=== PATIENT | female | born 1995 | race Two or more races ===

== ENCOUNTER 2016-09-28 11:59 | Emergency (ER) | payer OTHER ==
[~2016-09-28] VITALS: Ht 165.1 cm; Wt 112.5 kg
[~2016-09-28 11:59] MED LIST: FERR325T3 PO; IBUP80TA PO; PERCOCET PO; VALT500T PO; VITAPRTA PO
[2016-09-28 13:16] LABS: BASO % 0.4 % (0.0-1.0); EOS # 0.1 K/mm3 (0.0-0.50); EOS % 1.5 % (0.0-3.0); LARGE UNSTAINED CELL # 0.2 K/mm3 (0.0-0.4); LARGE UNSTAINED CELL % 1.9 % (0.0-4.0); LYMPH # 2.4 K/mm3 (1.5-6.5); LYMPH % 30.8 % (24.0-44.0); MEAN CORPUSCULAR HEMOGLOBIN 29.4 pg (27.0-33.0); MEAN CORPUSCULAR HGB CONC 32.7 g/dl (32.0-36.5); MONO # 0.6 K/mm3 (0.0-0.8); MONO % 7.4 % (0.0-5.0); NEUTROPHILS # 4.5 K/mm3 (1.8-7.7); NEUTROPHILS % 58.1 % (36.0-66.0); PLATELET COUNT, AUTOMATED 223 k/mm3 (150-450); RED CELL DISTRIBUTION WIDTH 12.5 % (11.5-14.5); WHITE BLOOD COUNT 7.8 K/mm3 (4.0-10.0)
[2016-09-28 13:23] LABS: ALBUMIN 3.6 GM/DL (3.2-5.2); ALBUMIN/GLOBULIN RATIO 0.97 (1.00-1.93); ALKALINE PHOSPHATASE 96 U/L (45-117); ALT/SGPT 11 U/L (12-78); ANION GAP 5 MEQ/L (8-16); AST/SGOT 10 U/L (15-37); BILIRUBIN,TOTAL 0.2 MG/DL (0.2-1.0); BLOOD UREA NITROGEN 14 MG/DL (7-18); CALCIUM LEVEL 9.1 MG/DL (8.5-10.1); CARBON DIOXIDE LEVEL 29 MEQ/L (21-32); CHLORIDE LEVEL 107 MEQ/L (98-107); CREATININE FOR GFR 0.69 MG/DL (0.55-1.02); GLOMERULAR FILTRATION RATE > 60.0 (>60); GLUCOSE, FASTING 87 MG/DL (70-105); POTASSIUM SERUM 4.7 MEQ/L (3.5-5.1); SODIUM LEVEL 141 MEQ/L (136-145); TOTAL PROTEIN 7.3 GM/DL (6.4-8.2)
[2016-09-28 13:24] LABS: CONTROL LINE HCG INT CTR LINE PRESENT
--- NOTE | 2016-09-28 14:13 | REP ---
RENAL ULTRASOUND: Real-time sonographic evaluation of the kidneys performed and demonstrates both kidneys to be normal in size and echotexture, right kidney measuring 11.1 x 5.5 x 4.7 cm and left kidney 10.6 x 5.5 x 5.6 cm. There is no hydronephrosis bilaterally. No intrarenal stones are seen. Small cystic area in the upper pole of the right kidney may represent a small cyst or focal caliectasis, measuring 9 x 6 x 7 mm. Urinary bladder is empty and is not evaluated. IMPRESSION: No evidence of hydronephrosis or intrarenal calculi. Signed by Tejinder Miller MD 09/28/2016 07:49 P
[2016-09-28] MEDS ORDERED: NAPR500T2 PO (15:11)
[2016-09-28 15:24] VITALS: BP 130/66
[2016-09-28] MEDS ORDERED: IBUP600T26 PO (15:35)
[2016-09-28] MEDS ORDERED: IBUPROFEN 600 MG TAB PO ONE (15:45)
--- NOTE | 2016-09-29 06:51 | REP ---
CHEST, TWO VIEWS: There is no evidence of acute infiltrate. No pleural effusion is seen. The heart is normal in size. The mediastinal silhouette is unremarkable. The visualized osseous structures are intact. IMPRESSION: No acute pulmonary disease. Signed by Tejinder Miller MD 09/29/2016 07:49 P
== END 2016-09-28 15:45 | disposition home or self-care (01) ==
LOC: M ED 12:54
DX: R10.9 Unspecified abdominal pain (principal); M54.9 Dorsalgia, unspecified; J45.909 Unspecified asthma, uncomplicated; F41.9 Anxiety disorder, unspecified; F32.9 Major depressive disorder, single episode, unspecified; F17.200 Nicotine dependence, unspecified, uncomplicated

== ENCOUNTER 2017-03-04 15:11 | Emergency (ER) | payer OTHER ==
[~2017-03-04] VITALS: Ht 165.1 cm; Wt 118.1 kg
[~2017-03-04 15:11] MED LIST changes: -NAPR500T PO; -TYLE325C PO
[2017-03-04] MEDS ORDERED: TYLE325C PO (15:24)
[2017-03-04] MEDS ORDERED: KETOROLAC 30 MG/ML VIAL (J1885) IV ONE (16:30)
--- NOTE | 2017-03-04 16:48 | REP ---
Chest two views HISTORY: Chest pain Comparison: 09/28/2016 The lungs are clear. The heart is normal in size. The pulmonary vasculature is normal in appearance. The bony structure is intact. IMPRESSION: No acute disease. Signed by Emerson Cobian MD 03/04/2017 04:40 P
[2017-03-04] MEDS ORDERED: NAPR500T PO (17:52)
[2017-03-04 17:58] VITALS: BP 106/58
--- NOTE | 2017-03-05 08:24 | ECGEPIP ---
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 Order Number: [id number] Reading MD: Yaquelin Ruiz Measurements Intervals [place] Rate: 57 P: 51 [place]: 184 QRS: 57 QRSD: 92 T: 52 QT: 454 QTc: 443 Interpretive Statements SINUS BRADYCARDIA NSTTW ABNORMALITY, NEW 12/15/14 Electronically Signed On 03-05-2017 8:24:36 EDT by Yaquelin Ruiz
== END 2017-03-04 18:00 | disposition home or self-care (01) ==
LOC: M ED 15:11
DX: R07.89 Other chest pain (principal); R09.1 Pleurisy; J45.909 Unspecified asthma, uncomplicated; F41.9 Anxiety disorder, unspecified; F33.9 Major depressive disorder, recurrent, unspecified
CPT/HCPCS: 36415; 71020; 81025; 82550; 82553; 85379; 93000; 96374; 99284; J1885

== ENCOUNTER → 2017-03-04 | Outpatient (CLI) | payer OTHER ==
[~2017-03-04] MED LIST changes: +IBUP-1022 PO; +NAPR500T PO; +NAPR500T3 PO; +TYLE325C PO
[2017-03-04 15:12] LABS: BASO % 0.3 % (0.0-1.0); EOS # 0.1 10^3/uL (0.0-0.50); EOS % 0.8 % (0.0-3.0); IMMATURE GRANULOCYTE % 0.2 % (0-0); LYMPH # 2.6 10^3/uL (1.5-6.5); LYMPH % 29.3 % (24.0-44.0); MEAN CORPUSCULAR HEMOGLOBIN 29.1 pg (27.0-33.0); MEAN CORPUSCULAR HGB CONC 32.6 g/dl (32.0-36.5); MEAN CORPUSCULAR VOLUME 89.2 fl (80.0-96.0); MONO # 0.7 10^3/uL (0.0-0.8); MONO % 8.1 % (0.0-5.0); NEUTROPHILS # 5.4 10^3/uL (1.8-7.7); NEUTROPHILS % 61.3 % (36.0-66.0); PLATELET COUNT, AUTOMATED 262 10^3/uL (150-450); RED CELL DISTRIBUTION WIDTH 12.8 % (11.5-14.5); WHITE BLOOD COUNT 8.8 10^3/uL (4.0-10.0)
[2017-03-04 15:50] LABS: ALBUMIN 3.7 GM/DL (3.2-5.2); ALBUMIN/GLOBULIN RATIO 1.03 (1.00-1.93); ALKALINE PHOSPHATASE 96 U/L (45-117); ALT/SGPT 21 U/L (12-78); ANION GAP 6 MEQ/L (8-16); AST/SGOT 15 U/L (15-37); BILIRUBIN,TOTAL 0.2 MG/DL (0.2-1.0); BLOOD UREA NITROGEN 13 MG/DL (7-18); CALCIUM LEVEL 8.8 MG/DL (8.5-10.1); CARBON DIOXIDE LEVEL 27 MEQ/L (21-32); CHLORIDE LEVEL 106 MEQ/L (98-107); CHOLESTEROL LEVEL 158 MG/DL (<200); CREATININE FOR GFR 0.72 MG/DL (0.55-1.02); GLOMERULAR FILTRATION RATE > 60.0 (>60); GLUCOSE, FASTING 94 MG/DL (70-105); POTASSIUM SERUM 4.4 MEQ/L (3.5-5.1); SODIUM LEVEL 139 MEQ/L (136-145); TOTAL PROTEIN 7.3 GM/DL (6.4-8.2); TRIGLYCERIDES LEVEL 110 MG/DL (<150)
== END ==
LOC: M LAB 14:46
PROVIDERS: ATTEND Family Medicine Addiction Medicine
DX: Z00.01 Encounter for general adult medical examination with abnormal findings (principal)

== ENCOUNTER 2017-04-06 20:41 | Emergency (ER) | payer OTHER ==
[~2017-04-06] VITALS: Ht 165.1 cm; Wt 117.3 kg
[~2017-04-06 20:41] MED LIST changes: +NAPR500T PO; +TYLE325C PO
[2017-04-06] MEDS ORDERED: IBUP-1114 PO (20:48)
[2017-04-06] MEDS ORDERED: NS 1,000 ML IV SCH (21:39)
[2017-04-06] MEDS ORDERED: ONDANSETRON 4MG/2ML VIAL (J2405) IV ONE (21:45)
[2017-04-06] MEDS: MORPHINE 4 MG/ML 1ML SYRINGE IV PRN (22:40)
[2017-04-06 22:46] LABS: BASO % 0.2 % (0.0-1.0); EOS # 0.1 10^3/uL (0.0-0.50); IMMATURE GRANULOCYTE % 0.3 % (0-0); LYMPH # 3.4 10^3/uL (1.5-6.5); LYMPH % 34.8 % (24.0-44.0); MEAN CORPUSCULAR HEMOGLOBIN 29.6 pg (27.0-33.0); MEAN CORPUSCULAR HGB CONC 33.6 g/dl (32.0-36.5); MEAN CORPUSCULAR VOLUME 88.1 fl (80.0-96.0); MONO # 0.8 10^3/uL (0.0-0.8); MONO % 8.3 % (0.0-5.0); NEUTROPHILS # 5.3 10^3/uL (1.8-7.7); NEUTROPHILS % 55.4 % (36.0-66.0); PLATELET COUNT, AUTOMATED 278 10^3/uL (150-450); RED CELL DISTRIBUTION WIDTH 12.7 % (11.5-14.5); WHITE BLOOD COUNT 9.6 10^3/uL (4.0-10.0)
[2017-04-06 22:57] LABS: INR 0.94
[2017-04-06 23:04] LABS: CONTROL LINE HCG INT CTR LINE PRESENT
[2017-04-06 23:13] LABS: ALBUMIN 3.2 GM/DL (3.2-5.2); ALBUMIN/GLOBULIN RATIO 0.82 (1.00-1.93); ALKALINE PHOSPHATASE 88 U/L (45-117); ALT/SGPT 14 U/L (12-78); ANION GAP 6 MEQ/L (8-16); AST/SGOT 11 U/L (7-37); BILIRUBIN,DIRECT < 0.1 MG/DL (0.0-0.2); BILIRUBIN,TOTAL 0.2 MG/DL (0.2-1.0); BLOOD UREA NITROGEN 19 MG/DL (7-18); CALCIUM LEVEL 8.2 MG/DL (8.5-10.1); CARBON DIOXIDE LEVEL 26 MEQ/L (21-32); CHLORIDE LEVEL 108 MEQ/L (98-107); CREATININE FOR GFR 0.63 MG/DL (0.55-1.02); GLOMERULAR FILTRATION RATE > 60.0 (>60); GLUCOSE, FASTING 93 MG/DL (70-105); POTASSIUM SERUM 3.6 MEQ/L (3.5-5.1); SODIUM LEVEL 140 MEQ/L (136-145); TOTAL PROTEIN 7.1 GM/DL (6.4-8.2)
[2017-04-06] MEDS ORDERED: ISOVUE-370 76% 100ML VIAL (Q9967) As Ordered ONE (23:40)
[2017-04-07] MEDS: MORPHINE 4 MG/ML 1ML SYRINGE IV PRN (01:00)
--- NOTE | 2017-04-07 01:10 | REPUSA ---
CLINICAL HISTORY: Dyspnea, exclude PE. TECHNIQUE: Multiple incremental axial, coronal and oblique images are obtained from the thoracic inle t to the upper abdomen. Intravenous contrast material was administered as per pulmonary embolism prot ocol. COMMENTS: Small bilateral pleural effusions. Passive atelectatic airspace disease in the lower lobes. There is excellent opacification of pulmonary arterial system without evidence for pulmonary embolism . Aorta is of normal caliber without evidence for dissection or aneurysm. There is no evidence of pleural or parenchymal mass. There is no evidence of hilar or mediastinal lym phadenopathy. The heart and great vessels are within normal limits. Images of the upper abdomen demonstrate no evidence of adrenal mass. The bony structures are free of lytic or blastic lesions. Multilevel degenerative changes are seen in volving the visualized thoracolumbar spine. Scattered calcifications are seen involving the aorta and major branches compatible with atherosclero sis. IMPRESSION: No evidence for pulmonary embolism. Small pleural effusions. Passive atelectatic airspace disease in the lower lobes. Thank you for your kind referral of this patient.
--- NOTE | 2017-04-07 01:20 | REPUSA ---
CLINICAL HISTORY: Abdominal pain. TECHNIQUE: Multiple axial and coronal CT images were obtained through the abdomen and pelvis after ad ministration of intravenous contrast material. COMMENTS: Minimal right pleural effusion. Small left pleural effusion. Passive atelectatic airspace disease in the lower lobes. Mild thickening of the proximal small bowel loops in the left upper quadrant. The liver is of uniform attenuation without mass or defect. There is no intra or extrahepatic biliary ductal dilatation. The spleen is normal. The gallbladder is within normal limits. The pancreas is of normal contour and attenuation characteristics. There is no evidence of adrenal mass. Both kidneys demonstrate prompt and equal nephrograms. The kidneys are normal in size, shape and conf iguration. There is no evidence of renal or ureteral mass. No renal or ureteral calculi are identifie d. There is no hydroureter or hydronephrosis. No evidence for appendicitis. No evidence for small or large bowel obstruction. There is no evidence of abdominal ascites or lymphadenopathy. There is no evidence of intrinsic or extrinsic bladder mass. There is no pelvic ascites or lymphadeno frankie. Images of the lung bases show no evidence of pleural or parenchymal mass. The bony structures are reyes e of lytic or blastic lesions. IMPRESSION: Minimal right pleural effusion. Small left pleural effusion. Passive atelectatic airspace disease in the lower lobes. Mild thickening of the proximal small bowel loops in the left upper quadrant. Underdistention versus mild enteritis. Thank you for your kind referral of this patient.
[2017-04-07 02:59] VITALS: BP 113/58
--- NOTE | 2017-04-07 09:32 | ED PDOC ---
Post-Departure Follow-Up ct abd/p faxed to [facility] for follow up Chele Locke MD Apr 07, 2017 09:32
--- NOTE | 2017-04-08 05:34 | ECGEPIP ---
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
== END 2017-04-07 03:19 | disposition home or self-care (01) ==
LOC: M ED 20:41
DX: R10.9 Unspecified abdominal pain (principal); Z72.0 Tobacco use
CPT/HCPCS: 71275; 74177; 80048; 80076; 82550; 82553; 83690; 84703; 85025; 85610; 85730; 93000; 93041; 94760; 96374; 96375; 96376; 99284; J2405; Q9967

== ENCOUNTER → 2017-05-14 | Outpatient (CLI) | payer OTHER ==
[2017-05-14 16:41] LABS: ERYTHROCYTE SEDIMENTATION RATE 19 mm/hr (0-20)
[2017-05-22 00:06] LABS: ANTI-SACCHAROMYCES CEREV. IgA 37.6 Units (0.0-24.9); ANTI-SACCHAROMYCES CEREV. IgG <20.0 Units (0.0-24.9)
== END ==
LOC: M LAB 15:27
DX: R93.3 Abnormal findings on diagnostic imaging of other parts of digestive tract (principal)
CPT/HCPCS: 82784

== ENCOUNTER 2017-06-03 10:30 | Emergency (ER) | payer OTHER ==
[2017-06-03] MEDS: METOCLOPRAMIDE 10 MG TAB PO (11:29)
[2017-06-03 11:53] LABS: BASO % 0.2 % (0.0-1.0); EOS % 0.3 % (0.0-3.0); HEMATOCRIT 40.7 % (36.0-47.0); HEMOGLOBIN 13.7 g/dl (12.0-16.0); IMMATURE GRANULOCYTE % 0.2 % (0-0); LYMPH # 1.9 10^3/uL (1.5-6.5); LYMPH % 18.8 % (24.0-44.0); MEAN CORPUSCULAR HEMOGLOBIN 28.8 pg (27.0-33.0); MEAN CORPUSCULAR HGB CONC 33.7 g/dl (32.0-36.5); MEAN CORPUSCULAR VOLUME 85.5 fl (80.0-96.0); MONO # 0.7 10^3/uL (0.0-0.8); MONO % 7.2 % (0.0-5.0); NEUTROPHILS # 7.6 10^3/uL (1.8-7.7); NEUTROPHILS % 73.3 % (36.0-66.0); PLATELET COUNT, AUTOMATED 262 10^3/uL (150-450); RED BLOOD COUNT 4.76 10^6/uL (4.00-5.40); RED CELL DISTRIBUTION WIDTH 12.2 % (11.5-14.5); WHITE BLOOD COUNT 10.3 10^3/uL (4.0-10.0)
[2017-06-03 12:29] LABS: ANION GAP 9 MEQ/L (8-16); BLOOD UREA NITROGEN 7 MG/DL (7-18); CALCIUM LEVEL 8.8 MG/DL (8.5-10.1); CARBON DIOXIDE LEVEL 24 MEQ/L (21-32); CHLORIDE LEVEL 106 MEQ/L (98-107); CREATININE FOR GFR 0.55 MG/DL (0.55-1.02); GLOMERULAR FILTRATION RATE > 60.0 (>60); GLUCOSE, FASTING 89 MG/DL (70-105); HCG, SERUM QUANTITATIVE 34677 MIU/ML; POTASSIUM SERUM 4.6 MEQ/L (3.5-5.1); SODIUM LEVEL 139 MEQ/L (136-145)
== END 2017-06-03 13:07 | disposition home or self-care (01) ==
LOC: M ED 10:30
DX: O21.9 Vomiting of pregnancy, unspecified (principal); O99.89 Other specified diseases and conditions complicating pregnancy, childbirth and the puerperium; R19.7 Diarrhea, unspecified; O99.511 Diseases of the respiratory system complicating pregnancy, first trimester; J45.909 Unspecified asthma, uncomplicated; Z3A.01 Less than 8 weeks gestation of pregnancy
CPT/HCPCS: 84702

== ENCOUNTER → 2017-07-08 | Outpatient (CLI) | payer OTHER ==
[2017-07-08 17:31] LABS: BASO % 0.2 % (0.0-1.0); EOS % 0.2 % (0.0-3.0); HEMATOCRIT 35.7 % (36.0-47.0); HEMOGLOBIN 12.2 g/dl (12.0-16.0); IMMATURE GRANULOCYTE % 0.4 % (0-3.0); LYMPH # 2.3 10^3/uL (1.5-6.5); LYMPH % 23.3 % (24.0-44.0); MEAN CORPUSCULAR HEMOGLOBIN 29.5 pg (27.0-33.0); MEAN CORPUSCULAR HGB CONC 34.2 g/dl (32.0-36.5); MEAN CORPUSCULAR VOLUME 86.2 fl (80.0-96.0); MONO # 0.5 10^3/uL (0.0-0.8); MONO % 5.5 % (0.0-5.0); NEUTROPHILS # 6.8 10^3/uL (1.8-7.7); NEUTROPHILS % 70.4 % (36.0-66.0); PLATELET COUNT, AUTOMATED 230 10^3/uL (150-450); RED BLOOD COUNT 4.14 10^6/uL (4.00-5.40); RED CELL DISTRIBUTION WIDTH 12.5 % (11.5-14.5); WHITE BLOOD COUNT 9.7 10^3/uL (4.0-10.0)
[2017-07-09 00:26] LABS: CHLAMYDIA DNA AMPLIFICATION NEGATIVE (NEGATIVE); GC DNA AMPLIFICATION NEGATIVE (NEGATIVE)
[2017-07-09 10:35] LABS: RUBELLA IgG QUALITATIVE IMMUNE (IMMUNE)
[2017-07-09 10:56] LABS: HBsAg Prenatal NEGATIVE (NEGATIVE)
[2017-07-09 11:04] LABS: HIV 1&2 SCREEN CENTAUR NEGATIVE (NEGATIVE)
== END ==
LOC: M SMT 15:39
DX: Z34.81 Encounter for supervision of other normal pregnancy, first trimester (principal); Z3A.09 9 weeks gestation of pregnancy
CPT/HCPCS: 86762

== ENCOUNTER 2017-07-24 12:09 | Emergency (ER) | payer OTHER ==
[2017-07-24] MEDS: NS 1,000 ML IV (12:50)
[2017-07-24] MEDS: ONDANSETRON 4MG/2ML VIAL (J2405) IV (12:50)
[2017-07-24 13:09] LABS: AMORPHOUS SEDIMENT RFX SMALL (NEGATIVE); KETONE, URINE AUTO RFX TRACE mg/dL (NEGATIVE); LEUKOCYTE ESTERASE UR AUTO RFX NEGATIVE (NEGATIVE); MUCUS, URINE RFX SMALL (NEGATIVE); NITRITE, URINE AUTO RFX NEGATIVE (NEGATIVE); RBC, URINE AUTO RFX 2 /HPF (0-3); SPECIFIC GRAVITY UR AUTO RFX 1.029 (1.002-1.035); SQUAM EPITHELIAL CELL UR AURFX 3 /HPF (0-6); WBC, URINE AUTO RFX 3 /HPF (0-3)
[2017-07-24 13:12] LABS: BASO % 0.3 % (0.0-1.0); EOS % 0.4 % (0.0-3.0); HEMATOCRIT 38.9 % (36.0-47.0); IMMATURE GRANULOCYTE % 0.5 % (0-3.0); LYMPH # 1.3 10^3/uL (1.5-6.5); LYMPH % 16.7 % (24.0-44.0); MEAN CORPUSCULAR HEMOGLOBIN 28.7 pg (27.0-33.0); MEAN CORPUSCULAR HGB CONC 33.4 g/dl (32.0-36.5); MEAN CORPUSCULAR VOLUME 85.9 fl (80.0-96.0); MONO # 0.5 10^3/uL (0.0-0.8); MONO % 6.2 % (0.0-5.0); NEUTROPHILS % 75.9 % (36.0-66.0); PLATELET COUNT, AUTOMATED 230 10^3/uL (150-450); RED BLOOD COUNT 4.53 10^6/uL (4.00-5.40); RED CELL DISTRIBUTION WIDTH 12.8 % (11.5-14.5); WHITE BLOOD COUNT 7.9 10^3/uL (4.0-10.0)
[2017-07-24 13:27] LABS: ALBUMIN/GLOBULIN RATIO 0.68 (1.00-1.93); ALKALINE PHOSPHATASE 76 U/L (45-117); ALT/SGPT 10 U/L (12-78); ANION GAP 8 MEQ/L (8-16); AST/SGOT 11 U/L (7-37); BILIRUBIN,TOTAL 0.2 MG/DL (0.2-1.0); BLOOD UREA NITROGEN 7 MG/DL (7-18); CALCIUM LEVEL 8.5 MG/DL (8.5-10.1); CARBON DIOXIDE LEVEL 24 MEQ/L (21-32); CHLORIDE LEVEL 104 MEQ/L (98-107); CREATININE FOR GFR 0.56 MG/DL (0.55-1.30); GLOMERULAR FILTRATION RATE > 60.0 (>60); GLUCOSE, FASTING 78 MG/DL (70-100); LIPASE 105 U/L (73-393); POTASSIUM SERUM 4.1 MEQ/L (3.5-5.1); SODIUM LEVEL 136 MEQ/L (136-145); TOTAL PROTEIN 7.4 GM/DL (6.4-8.2)
[2017-07-24] MEDS: PROMETHAZINE 25 MG TAB PO (14:21)
== END 2017-07-24 15:52 | disposition home or self-care (01) ==
LOC: M ED 12:09
DX: O21.0 Mild hyperemesis gravidarum (principal); O99.89 Other specified diseases and conditions complicating pregnancy, childbirth and the puerperium; R19.7 Diarrhea, unspecified; O99.511 Diseases of the respiratory system complicating pregnancy, first trimester; J45.909 Unspecified asthma, uncomplicated; Z3A.14 14 weeks gestation of pregnancy
CPT/HCPCS: J2405

== ENCOUNTER → 2017-08-22 | Outpatient (CLI) | payer OTHER | LOC: M RAD 09:30 | DX: Z36.9 Encounter for antenatal screening, unspecified (principal); Z3A.19 19 weeks gestation of pregnancy ==

== ENCOUNTER → 2017-09-17 | Outpatient (CLI) | payer OTHER | LOC: M SMT 14:35 | DX: O34.211 Maternal care for low transverse scar from previous cesarean delivery (principal); Z3A.21 21 weeks gestation of pregnancy | CPT/HCPCS: 76816 ==

== ENCOUNTER → 2017-10-30 | Outpatient (CLI) | payer OTHER ==
[2017-10-30 11:12] LABS: HEMATOCRIT 34.6 % (36.0-47.0); HEMOGLOBIN 11.6 g/dl (12.0-15.5); MEAN CORPUSCULAR HEMOGLOBIN 29.4 pg (27.0-33.0); MEAN CORPUSCULAR HGB CONC 33.5 g/dl (32.0-36.5); MEAN CORPUSCULAR VOLUME 87.6 fl (80.0-96.0); PLATELET COUNT, AUTOMATED 211 10^3/uL (150-450); RED BLOOD COUNT 3.95 10^6/uL (4.00-5.40); RED CELL DISTRIBUTION WIDTH 12.9 % (11.5-14.5); WHITE BLOOD COUNT 10.8 10^3/uL (4.0-10.0)
[2017-10-30 11:30] LABS: GLUCOSE CHALLENGE TEST 1 HOUR 119 MG/DL (LESS THAN 140)
== END ==
LOC: M LAB 09:36
DX: Z34.82 Encounter for supervision of other normal pregnancy, second trimester (principal)
CPT/HCPCS: 82950

== ENCOUNTER 2017-11-30 17:13 | Outpatient (CLI) | payer OTHER | END 2017-11-30 18:25 | disposition home or self-care (01) | LOC: M LDO 17:13 | DX: O47.03 False labor before 37 completed weeks of gestation, third trimester (principal); Z3A.32 32 weeks gestation of pregnancy | CPT/HCPCS: 76815 ==

== ENCOUNTER → 2017-12-25 | Outpatient (REF) | payer OTHER | LOC: M LAB REF 17:24 | DX: Z34.83 Encounter for supervision of other normal pregnancy, third trimester (principal); Z3A.00 Weeks of gestation of pregnancy not specified | CPT/HCPCS: 87081 ==

== ENCOUNTER 2018-01-12 10:23 | Outpatient (CLI) | payer OTHER | END 2018-01-12 12:47 | disposition home or self-care (01) | LOC: M LDO 10:23 | DX: O47.1 False labor at or after 37 completed weeks of gestation (principal); Z3A.38 38 weeks gestation of pregnancy ==

== ENCOUNTER 2018-01-14 03:54 | Inpatient (IN) | payer OTHER ==
[2018-01-14 04:38] LABS: HEMATOCRIT 37.4 % (36.0-47.0); HEMOGLOBIN 12.6 g/dl (12.0-15.5); MEAN CORPUSCULAR HGB CONC 33.7 g/dl (32.0-36.5); MEAN CORPUSCULAR VOLUME 86.2 fl (80.0-96.0); PLATELET COUNT, AUTOMATED 208 10^3/uL (150-450); RED BLOOD COUNT 4.34 10^6/uL (4.00-5.40); RED CELL DISTRIBUTION WIDTH 13.7 % (11.5-14.5); WHITE BLOOD COUNT 12.8 10^3/uL (4.0-10.0)
[2018-01-14] MEDS ORDERED: FENTANYL 2MCG/ML ROPIVACAINE 0.2% IN 0.9% NACL 200ML IVBAG As Ordered (06:46)
[2018-01-14] MEDS ORDERED: ONDANSETRON 4MG/2ML VIAL (J2405) IV ×3 (08:00→15:15)
[2018-01-14] MEDS ORDERED: FENTANYL/ROPIVACAINE/NACL BAG 200 ML EPIDURAL (08:00)
[2018-01-14] MEDS ORDERED: EPIDURAL/PCA KEYS XX (08:00)
[2018-01-14] MEDS ORDERED: NALOXONE INJ 0.4 MG/1 ML VIAL (J2310) IV ×3 (08:00→13:45)
[2018-01-14] MEDS ORDERED: REFRIGERATOR IV KEYS XX (08:00)
[2018-01-14] MEDS ORDERED: ePHEDrine SULFATE 25 MG/5 ML(5MG/ML) SYRINGE IV (08:00)
[2018-01-14] MEDS ORDERED: EPIDURAL COMMENT XX (08:00)
[2018-01-14] MEDS ORDERED: LACTATED RINGER'S 1000 ML IV (08:00)
[2018-01-14] MEDS ORDERED: diphenhydrAMINE INJ 50MG/ML VIAL (J1200) IV (08:00)
[2018-01-14] MEDS: LACTATED RINGER'S 1000 ML IV (08:27)
[2018-01-14] MEDS: OXYTOCIN DRIP 30 UNITS in APPROPRIATE DILUENT 1 EA IV (08:27)
[2018-01-14] MEDS: LR 1,000 ML IV ×3 (08:28→22:41)
[2018-01-14] MEDS: PRENATAL VITAMINS CHEWABLE TABLET PO (09:00)
[2018-01-14] MEDS ORDERED: BICITRA 30ML SOLN UDC As Ordered (13:23)
[2018-01-14] MEDS ORDERED: ceFAZolin 2 GM/D5W 50 ML IV BAG (J0690 PER 500MG) As Ordered (13:24)
[2018-01-14] MEDS ORDERED: METOCLOPRAMIDE INJ 10MG/2ML VIAL (J2765) IV (13:45)
[2018-01-14] MEDS ORDERED: NALBUPHINE HCL 10 MG/ML AMP (J2300) IV (13:45)
[2018-01-14] MEDS ORDERED: SODIUM BICARBONATE 8.4% INJ 50MEQ 50 ML VIAL As Ordered (13:59)
[2018-01-14] MEDS ORDERED: OXYTOCIN INJ 10 UNITS/ML VIAL (J2590) As Ordered (13:59)
[2018-01-14] MEDS ORDERED: LIDOCAINE 2% W/EPIN INJ 20ML **PRES FREE As Ordered (13:59)
[2018-01-14] MEDS ORDERED: PHENYLephrine HCL 500 MCG/5 ML (100MCG/ML) SYRINGE (J2370) As Ordered (14:01)
[2018-01-14] MEDS ORDERED: MORPHINE PRES-FREE INJ 10 MG/10 ML VIAL (J2274) As Ordered (14:08)
[2018-01-14] MEDS ORDERED: KETOROLAC 60 MG/2 ML VIAL (J1885) As Ordered (14:13)
[2018-01-14 14:18] LABS: CORD GAS ABE V -2.3; CORD GAS HCO3 V 23.4 MEQ/L; CORD GAS O2 SAT V 69.7 %; CORD GAS PCO2 V 43.5 mmHg; CORD GAS PH V 7.349 UNITS; CORD GAS PO2 V 31.2 mmHg; CORD GAS SBC V 21.9 MEQ/L; CORD GAS TCO2 V 24.8 MEQ/L
[2018-01-14 14:20] LABS: CORD GAS HCO3 A 22.1 MEQ/L; CORD GAS O2 SAT A 20.6 %; CORD GAS PCO2 A 44.2 mmHg; CORD GAS PH A 7.317 UNITS; CORD GAS PO2 A 13.4 mmHg; CORD GAS SBC A 19.4 MEQ/L; CORD GAS TCO2 A 23.5 MEQ/L
[2018-01-14] MEDS ORDERED: OXYTOCIN DRIP 30 UNITS in APPROPRIATE DILUENT 1 EA IV (14:41)
[2018-01-14] MEDS ORDERED: PERCOCET 5MG/325MG TAB PO ×2 (14:45)
[2018-01-14] MEDS ORDERED: RHOGAM 300 MCG (1500 IU) INJ (J2790) IM (14:45)
[2018-01-14] MEDS ORDERED: MEASLES,MUMPS,RUBELLA VACCINE INJ (MMR-II) (90707) SC (14:45)
[2018-01-14] MEDS ORDERED: DOCUSATE SODIUM 100 MG CAP PO (14:45)
[2018-01-14] MEDS: BICITRA 30ML SOLN UDC PO (15:10)
[2018-01-14] MEDS ORDERED: fentaNYL 100 MCG/2 ML INJECTION (J3010) IV (15:15)
[2018-01-14] MEDS: AMPICILLIN SOD/SULBACTAM SOD 3 GM in D5W MINI-BAG PLUS 100 ML IV ×2 (16:57→21:18)
[2018-01-14] MEDS: diphenhydrAMINE 25 MG CAP PO (18:22)
[2018-01-14] MEDS: ACETAMINOPHEN 500 MG TAB PO (18:22)
[2018-01-14] MEDS: ONDANSETRON 4MG/2ML VIAL (J2405) IV (18:55)
[2018-01-14] MEDS: KETOROLAC 30 MG/ML VIAL (J1885) IV (20:02)
[2018-01-15] MEDS: AMPICILLIN SOD/SULBACTAM SOD 3 GM in D5W MINI-BAG PLUS 100 ML IV ×4 (02:32→20:36)
[2018-01-15] MEDS: KETOROLAC 30 MG/ML VIAL (J1885) IV ×2 (02:32→08:31)
[2018-01-15 07:12] LABS: HEMATOCRIT 31.5 % (36.0-47.0); MEAN CORPUSCULAR HEMOGLOBIN 29.1 pg (27.0-33.0); PLATELET COUNT, AUTOMATED 177 10^3/uL (150-450); RED BLOOD COUNT 3.58 10^6/uL (4.00-5.40); RED CELL DISTRIBUTION WIDTH 13.7 % (11.5-14.5); WHITE BLOOD COUNT 12.2 10^3/uL (4.0-10.0)
[2018-01-15 07:18] LABS: HEMOGLOBIN 10.4 g/dl (12.0-15.5)
[2018-01-15] MEDS: PRENATAL VITAMINS CHEWABLE TABLET PO (08:31)
[2018-01-15] MEDS: ACETAMINOPHEN 500 MG TAB PO ×2 (13:53→20:37)
[2018-01-15] MEDS: IBUPROFEN 800 MG TAB PO ×2 (15:23→23:10)
[2018-01-15] MEDS: MOM 30ML SUSPENSION UDC PO (20:36)
[2018-01-16] MEDS: AMPICILLIN SOD/SULBACTAM SOD 3 GM in D5W MINI-BAG PLUS 100 ML IV (02:33)
[2018-01-16] MEDS: ACETAMINOPHEN 500 MG TAB PO ×2 (02:34→09:54)
[2018-01-16] MEDS: IBUPROFEN 800 MG TAB PO (07:44)
[2018-01-16] MEDS: PRENATAL VITAMINS CHEWABLE TABLET PO (07:44)
== END 2018-01-16 11:15 | disposition home or self-care (01) | DRG 540 ==
LOC: M LDO 03:54 → M LDI 04:12 → M OBS 16:31
PROVIDERS: Advanced Practice Midwife
PROC: 10D00Z1 Extraction of Products of Conception, Low, Open Approach (ICD-10-PCS; principal; 2018-01-14 08:01)
DX: O34.211 Maternal care for low transverse scar from previous cesarean delivery (principal); O76 Abnormality in fetal heart rate and rhythm complicating labor and delivery; Z3A.38 38 weeks gestation of pregnancy; Z37.0 Single live birth

== ENCOUNTER 2018-07-17 06:31 | Emergency (ER) | payer OTHER ==
[~2018-07-17] VITALS: Ht 165.1 cm; Wt 122.7 kg
[~2018-07-17 06:31] MED LIST changes: +GUAI100S27 PO; +IBUP-1114 PO; +IBUP1TAB7 PO; +NAPR-50 PO; +NAPR-885 PO; -NAPR500T PO; -NAPR500T3 PO; +PHEN1SUP6 PR; +PRENTAB9 PO; +REGL10TA6 PO; +TUMS500C PO; +TYLE500T78 PO
[2018-07-17] MEDS ORDERED: ONDANSETRON 4MG/2ML VIAL (J2405) IV ONE (07:00)
[2018-07-17] MEDS ORDERED: NS 1,000 ML IV ONE (07:00)
[2018-07-17] MEDS ORDERED: KETOROLAC 30 MG/ML VIAL (J1885) IV ONE (07:00)
[2018-07-17 07:03] LABS: BASO % 0.2 % (0.0-1.0); EOS # 0.2 10^3/uL (0.0-0.50); EOS % 1.2 % (0.0-3.0); HEMATOCRIT 42.7 % (36.0-47.0); HEMOGLOBIN 14.1 g/dl (12.0-15.5); LYMPH # 1.7 10^3/uL (1.5-6.5); MEAN CORPUSCULAR HEMOGLOBIN 28.5 pg (27.0-33.0); MEAN CORPUSCULAR VOLUME 86.3 fl (80.0-96.0); MONO # 0.9 10^3/uL (0.0-0.8); MONO % 7.1 % (0.0-5.0); PLATELET COUNT, AUTOMATED 270 10^3/uL (150-450); RED BLOOD COUNT 4.95 10^6/uL (4.00-5.40); WHITE BLOOD COUNT 12.8 10^3/uL (4.0-10.0)
[2018-07-17 07:32] LABS: ALBUMIN 3.8 GM/DL (3.2-5.2); ALT/SGPT 19 U/L (12-78); AMYLASE 34 U/L (25-115); BILIRUBIN,DIRECT 0.1 MG/DL (0.0-0.2); BILIRUBIN,TOTAL 0.5 MG/DL (0.2-1.0); BLOOD UREA NITROGEN 16 MG/DL (7-18); CALCIUM LEVEL 8.6 MG/DL (8.5-10.1); CARBON DIOXIDE LEVEL 24 MEQ/L (21-32); CHLORIDE LEVEL 109 MEQ/L (98-107); CREATININE FOR GFR 0.69 MG/DL (0.55-1.30); GLOMERULAR FILTRATION RATE > 60.0 (>60); GLUCOSE, FASTING 104 MG/DL (70-100); LIPASE 97 U/L (73-393); POTASSIUM SERUM 4.4 MEQ/L (3.5-5.1); SODIUM LEVEL 142 MEQ/L (136-145); TOTAL PROTEIN 7.7 GM/DL (6.4-8.2)
[2018-07-17] MEDS ORDERED: ISOVUE-370 76% 100ML VIAL (Q9967) As Ordered ONE (07:59)
--- NOTE | 2018-07-17 08:33 | REP ---
Clinical: Severe left lower quadrant abdominal pain with nausea vomiting and diarrhea. Technique: Axial contrast enhanced images from the lung bases to the pubic symphysis using 100 ml Isovue 370 intravenous contrast material with coronal and sagittal re-formations. Comparison: 04/07/2017. Findings: Lung bases are clear. Visualized heart and pericardium normal. Liver, spleen, pancreas, gallbladder, bilateral adrenal glands and kidneys are normal. The enteric system is without obstruction or acute inflammatory process. Normal terminal ileum and appendix are identified in the right lower quadrant. Pelvis demonstrates normal bladder and age-appropriate uterus/adnexa. No ascites. No free air. No adenopathy. 1 cm fat containing periumbilical hernia noted. Vasculature is normal. Surrounding musculoskeletal structures are intact. Impression: No acute abdominopelvic pathology appreciated. Electronically Signed by Ramez Mcclellan MD 07/17/2018 08:25 A
[2018-07-17] MEDS ORDERED: ONDA4TAB6 PO (08:43)
[2018-07-17] MEDS ORDERED: REGL10TA6 PO (08:50)
[2018-07-17 09:11] VITALS: BP 126/72
== END 2018-07-17 09:30 | disposition home or self-care (01) ==
LOC: M ED 06:31
DX: R11.2 Nausea with vomiting, unspecified (principal); R19.7 Diarrhea, unspecified
CPT/HCPCS: 74177; 80048; 80076; 81001; 81025; 82150; 83690; 85025; 96361; 96374; 96375; 99284; J1885; J2405; Q9967

== ENCOUNTER → 2018-11-09 | Outpatient (REF) | payer OTHER ==
[~2018-11-09] MED LIST changes: +GUAI100L6 PO; -GUAI100S27 PO; -NAPR-50 PO; +NAPR-837 PO; +ONDA4TAB6 PO
[2018-11-09 13:42] LABS: BASO % 0.4 % (0.0-1.0); EOS # 0.1 10^3/uL (0.0-0.50); EOS % 0.8 % (0.0-3.0); HEMATOCRIT 42.1 % (36.0-47.0); HEMOGLOBIN 13.8 g/dl (12.0-15.5); LYMPH # 2.5 10^3/uL (1.5-6.5); LYMPH % 31.2 % (24.0-44.0); MEAN CORPUSCULAR HEMOGLOBIN 29.1 pg (27.0-33.0); MEAN CORPUSCULAR HGB CONC 32.8 g/dl (32.0-36.5); MEAN CORPUSCULAR VOLUME 88.6 fl (80.0-96.0); MONO # 0.6 10^3/uL (0.0-0.8); MONO % 8.1 % (0.0-5.0); NEUTROPHILS # 4.7 10^3/uL (1.8-7.7); NEUTROPHILS % 59.2 % (36.0-66.0); PLATELET COUNT, AUTOMATED 240 10^3/uL (150-450); RED BLOOD COUNT 4.75 10^6/uL (4.00-5.40); WHITE BLOOD COUNT 7.9 10^3/uL (4.0-10.0)
[2018-11-09 13:56] LABS: ALBUMIN 3.6 GM/DL (3.2-5.2); ALT/SGPT 14 U/L (12-78); BILIRUBIN,TOTAL 0.3 MG/DL (0.2-1.0); BLOOD UREA NITROGEN 13 MG/DL (7-18); CARBON DIOXIDE LEVEL 28 MEQ/L (21-32); CHLORIDE LEVEL 106 MEQ/L (98-107); CHOLESTEROL LEVEL 130 MG/DL (<200); CHOLESTEROL RISK RATIO 2.954 (<5); CREATININE FOR GFR 0.76 MG/DL (0.55-1.30); GLOMERULAR FILTRATION RATE > 60.0 (>60); GLUCOSE, FASTING 94 MG/DL (70-100); HDL CHOLESTEROL 44 MG/DL (>40); LDL CHOLESTEROL 74 MG/DL (<100); NON-HDL-C 86 MG/DL; POTASSIUM SERUM 4.6 MEQ/L (3.5-5.1); SODIUM LEVEL 140 MEQ/L (136-145); TOTAL PROTEIN 7.4 GM/DL (6.4-8.2); TRIGLYCERIDES LEVEL 62 MG/DL (<150)
== END ==
LOC: M LAB REF 13:11
PROVIDERS: ATTEND Family Medicine Addiction Medicine
DX: Z68.42 Body mass index [BMI] 45.0-49.9, adult (principal); E66.01 Morbid (severe) obesity due to excess calories; Z00.01 Encounter for general adult medical examination with abnormal findings

== ENCOUNTER → 2018-12-04 | Outpatient (CLI) | payer OTHER ==
--- NOTE | 2018-12-04 16:14 | REP ---
CHEST: Two views. There is no evidence of acute infiltrate. No pleural effusion is seen. The heart is normal in size. The mediastinal silhouette is unremarkable. The visualized osseous structures are intact. IMPRESSION: No acute pulmonary disease. Electronically Signed by Tejinder Miller MD 12/06/2018 07:29 P
== END ==
LOC: M RAD 15:32
PROVIDERS: ATTEND Family Medicine Addiction Medicine
DX: R07.89 Other chest pain (principal)

== ENCOUNTER 2019-02-16 13:59 | Emergency (ER) | payer OTHER ==
[~2019-02-16] VITALS: Ht 165.1 cm; Wt 123.6 kg
[2019-02-16 14:00] VITALS: BP 134/77
[2019-02-16] MEDS ORDERED: ACET1TAB55 PO (14:06)
[2019-02-16] MEDS ORDERED: PROPARACAINE 0.5% OPHTH SOL 15ML OS ONE (15:30)
[2019-02-16] MEDS ORDERED: FLUORESCEIN OPHTH 1 MG STRIP OS ONE (15:30)
[2019-02-16] MEDS ORDERED: ERYT1OIN26 OS (15:59)
== END 2019-02-16 16:13 | disposition home or self-care (01) ==
LOC: M ED 13:59
DX: S05.02XA Injury of conjunctiva and corneal abrasion without foreign body, left eye, initial encounter (principal); W55.03XA Scratched by cat, initial encounter; Y92.89 Other specified places as the place of occurrence of the external cause

== ENCOUNTER → 2019-08-10 | Outpatient (REF) | payer OTHER, MEDICAID ==
[~2019-08-10] MED LIST changes: +ACET1TAB55 PO; +ERYT1OIN26 OS
[2019-08-10 12:52] LABS: BASO % 0.3 % (0.0-1.0); EOS # 0.1 10^3/uL (0.0-0.5); HEMATOCRIT 43.3 % (36.0-47.0); HEMOGLOBIN 13.8 g/dl (12.0-15.5); LYMPH # 1.9 10^3/uL (1.5-5.0); LYMPH % 24.7 % (24.0-44.0); MEAN CORPUSCULAR HGB CONC 31.9 g/dl (32.0-36.5); MONO # 0.7 10^3/uL (0.0-0.8); MONO % 9.4 % (0.0-5.0); NEUTROPHILS # 4.9 10^3/uL (1.5-8.5); NEUTROPHILS % 64.2 % (36.0-66.0); PLATELET COUNT, AUTOMATED 262 10^3/uL (150-450); RED BLOOD COUNT 4.92 10^6/uL (4.00-5.40); WHITE BLOOD COUNT 7.7 10^3/uL (4.0-10.0)
[2019-08-10 13:16] LABS: ALBUMIN 3.5 GM/DL (3.2-5.2); ALT/SGPT 16 U/L (12-78); BILIRUBIN,TOTAL 0.3 MG/DL (0.2-1.0); BLOOD UREA NITROGEN 14 MG/DL (7-18); CALCIUM LEVEL 8.9 MG/DL (8.5-10.1); CARBON DIOXIDE LEVEL 30 MEQ/L (21-32); CHLORIDE LEVEL 104 MEQ/L (98-107); CHOLESTEROL LEVEL 143 MG/DL (<200); CHOLESTEROL RISK RATIO 2.918 (<5); CREATININE FOR GFR 0.68 MG/DL (0.55-1.30); FREE T4 0.92 NG/DL (0.76-1.46); GLOMERULAR FILTRATION RATE > 60.0 (>60); GLUCOSE, FASTING 94 MG/DL (70-100); HDL CHOLESTEROL 49 MG/DL (>40); LDL CHOLESTEROL 78 MG/DL (<100); NON-HDL-C 94 MG/DL; POTASSIUM SERUM 4.2 MEQ/L (3.5-5.1); SODIUM LEVEL 138 MEQ/L (136-145); TOTAL 25(OH) VITAMIN D 19.1 NG/ML (30.0-100.0); TOTAL PROTEIN 7.3 GM/DL (6.4-8.2); TRIGLYCERIDES LEVEL 80 MG/DL (<150)
[2019-08-10 13:49] LABS: HEMOGLOBIN A1c 5.7 %
== END ==
LOC: M LAB REF 12:07
PROVIDERS: ATTEND Nurse Practitioner Family
DX: R06.00 Dyspnea, unspecified (principal); F41.0 Panic disorder [episodic paroxysmal anxiety]; Z68.42 Body mass index [BMI] 45.0-49.9, adult; E66.01 Morbid (severe) obesity due to excess calories; F41.1 Generalized anxiety disorder; M54.5 Low back pain

== ENCOUNTER 2020-05-31 11:49 | Emergency (ER) | payer MEDICAID, OTHER ==
[~2020-05-31] VITALS: Ht 165.1 cm; Wt 138.4 kg
[~2020-05-31 11:49] MED LIST changes: -ERYT1OIN26 OS; +ERYT5OIN25 OS
--- OUTSIDE RECORDS SUMMARY | 2020-05-31 11:55 | CCD ---
Author Author [facility] Organization [facility] Address Unknown Phone Unavailable Care Team Providers Care Transonic Engineer Name Role Phone Felicia StacyP Unavailable Unavailable Wiliam StacyP-BC Unavailable Unavailable Wiliam StacyP-BC Unavailable Unavailable Wiliam StacyP-BC Unavailable Unavailable Wiliam StacyP-BC Unavailable Unavailable Wiliam Stacy MATHEMATICIAN-BC Unavailable Unavailable Wiliam StacyP-BC Unavailable Unavailable Wiliam Stacy MATHEMATICIAN-BC Unavailable Unavailable Wiliam StacyP-BC Unavailable Unavailable Wiliam Stacy MATHEMATICIAN-BC Unavailable Unavailable Stacy, F Felicia MATHEMATICIAN-BC Unavailable Unavailable Stacy, F Felicia MATHEMATICIAN-BC Unavailable Unavailable Stacy, F Felicia MATHEMATICIAN-BC Unavailable Unavailable Stacy, F Felicia MATHEMATICIAN-BC Unavailable Unavailable Stacy, F Felicia MATHEMATICIAN-BC Unavailable Unavailable Stacy, F Felicia MATHEMATICIAN-BC Unavailable Unavailable Stacy, F Felicia MATHEMATICIAN-BC Unavailable Unavailable Stacy, F Felicia MATHEMATICIAN-BC Unavailable Unavailable Stacy, F Felicia MATHEMATICIAN-BC Unavailable Unavailable Stacy, F Felicia MATHEMATICIAN-BC Unavailable Unavailable Stacy, F Felicia MATHEMATICIAN-BC Unavailable Unavailable Stacy, F Felicia MATHEMATICIAN-BC Unavailable Unavailable Re-disclosure Warning The records that you are about to access may contain information from federally-assisted alcohol or drug abuse programs. If such information is present, then the following federally mandated warning applies: This information has been disclosed to you from records protected by federal confidentiality rules (42 CFR part 2). The federal rules prohibit you from making any further disclosure of this information unless further disclosure is expressly permitted by the written consent of the person to whom it pertains or as otherwise permitted by 42 CFR part 2. A general authorization for the release of medical or other information is NOT sufficient for this purpose. The Federal rules restrict any use of the information to criminally investigate or prosecute any alcohol or drug abuse patient.The records that you are about to access may contain highly sensitive health information, the redisclosure of which is protected by Article 27-F of the [facility] Public Health law. If you continue you may have access to information: Regarding HIV / AIDS; Provided by facilities licensed or operated by the [facility] Office of Mental Health; or Provided by the [facility] Office for People With Developmental Disabilities. If such information is present, then the following [facility] mandated warning applies: This information has been disclosed to you from confidential records which are protected by state law. State law prohibits you from making any further disclosure of this information without the specific written consent of the person to whom it pertains, or as otherwise permitted by law. Any unauthorized further disclosure in violation of state law may result in a fine or fdc sentence or both. A general authorization for the release of medical or other information is NOT sufficient authorization for further disc losure. Family History Family Member Name Family Member Gender Family Member Status Date o f Status Description Data Source(s) Unknown Unknown Problem [facility] ([facility]) Encounters Encounter Providers Location Date Indications Data Source(s ) Outpatient Attender: STEPHANIE BROWN FP 03/14/2020 11:01:02 AM EDT [facility] Outpatient Attender: Felicia BELTRE FP 03/01/2020 11: 08:02 AM EDT [facility] Outpatient Attender: STEPHANIE BROWN FP 03/01/2020 10:33:01 AM EDT [facility] Outpatient Attender: STEPHANIE BROWN FP 03/01/2020 08:28:01 AM EDT [facility] Outpatient Attender: STEPHANIE BROWN FP 11/29/2019 09:41:00 AM EDT [facility] Outpatient Attender: STEPHANIE BROWN FP 11/29/2019 09:06:00 AM EDT [facility] Outpatient Attender: STEPHANIE BROWN FP 11/25/2019 03:51:00 PM EDT [facility] Outpatient Attender: Felicia BELTRE FP 08/22/2019 09: 03:02 AM EDT [facility] Outpatient Attender: STEPHANIE BROWN FP 08/22/2019 09:03:00 AM EDT [facility] Outpatient Attender: STEPHANIE BROWN FP 08/17/2019 12:20:00 PM EDT [facility] Outpatient Attender: STEPHANIE BROWN FP 08/17/2019 10:56:04 AM EDT [facility] Outpatient Attender: Felicia BELTRE FP 08/14/2019 05: 02:59 PM EDT [facility] Outpatient Attender: STEPHANIE BROWN FP 08/11/2019 03:10:00 PM EDT [facility] Outpatient Attender: STEPHANIE BROWN FP 08/10/2019 09:52:01 AM EDT [facility] Outpatient Attender: STEPHANIE BROWN FP 08/06/2019 11:31:01 AM EDT [facility] Outpatient Attender: Felicia BELTRE FP 07/21/2019 10: 20:01 PM EST [facility] Outpatient Attender: STEPHANIE BROWN FP 07/20/2019 12:48:01 PM EST [facility] Outpatient Attender: Felicia BELTRE FP 07/18/2019 05: 02:01 PM [facility] Outpatient Attender: Felicia FOXBC FP 07/06/2019 12: 59:01 PM [facility] Outpatient Attender: STEPHANIE CAMPOSP FP 07/06/2019 08:26:00 AM [facility] Outpatient Attender: STEPHANIE CAMPOSP FP 07/02/2019 09:27:54 AM [facility] Outpatient Attender: Felicia FOXBC FP 07/02/2019 09: 23:45 AM [facility] Outpatient Attender: STEPHANIE CAMPOSP FP 07/02/2019 09:19:32 AM [facility] Outpatient Attender: STEPHANIE CAMPOSP FP 06/30/2019 02:20:00 PM [facility] Outpatient Attender: Felicia FOXBC FP 06/18/2019 04: 09:59 PM [facility] Outpatient Attender: STEPHANIE CAMPOSP FP 06/18/2019 03:34:00 PM [facility] Outpatient Attender: STEPHANIE CAMPOSP FP 06/04/2019 12:09:00 PM [facility] Outpatient Attender: STEPHANIE CAMPOSP FP 05/24/2019 10:26:02 AM [facility] Outpatient Attender: Felicia BELTRE FP 05/24/2019 10: 25:01 AM [facility] Outpatient Attender: STEPHANIE BROWN FP 05/24/2019 10:17:01 AM [facility] Outpatient Attender: STEPHANIE BROWN FP 05/24/2019 10:16:01 AM [facility] Outpatient Attender: STEPHANIE CAMPOSP FP 05/24/2019 08:56:00 AM [facility] Outpatient Attender: STEPHANIE BROWN FP 05/22/2019 09:32:01 PM [facility] Outpatient Attender: Felicia FOXBC FP 05/22/2019 09: 31:00 PM [facility] Outpatient Attender: STEPHANIE BROWN FP 05/21/2019 12:55:00 PM [facility] Outpatient Attender: STEPHANIE BROWN FP 05/17/2019 02:05:00 PM [facility] Outpatient Attender: Felicia FOXBC FP 05/13/2019 12: 06:59 PM [facility] Outpatient Attender: STEPHANIE Stacy MATHEMATICIAN FP 05/10/2019 02:16:01 PM [facility] Outpatient Attender: STEPHANIE Stacy MATHEMATICIAN FP 04/08/2019 04:34:01 PM [facility] Insurance Providers Payer name Policy type / Coverage type Policy ID Covered libertarian ID Covered libertarian's relationship to law Policy Law Plan Information [facility] [id number] SP [id number] [place] [id number] SP [id number] UNHC COMMUNITY PLAN MCDHMO [id number] SP [id number] Managed Care - [facility] Community Plan P [id number] S [id number] Medicaid S [id number] S [id number] MEDICAID [id number] SP [id number] Managed Care - [facility] Community Plan P [id number] S [id number] Managed Care - Community Plan [facility] P [id number] S [id number] Medicaid S [id number] S [id number] Managed Care - Community Plan [facility] P [id number] S [id number] Medicaid S [id number] S [id number] [facility] Medigap Part B [id number] Self [id number] [place] [id number] Self [id number] [facility]) O [id number] S [id number] UNHC COMMUNITY PLAN MCDO [id number] SP [id number] UNHC COMMUNITY PLAN MCDO [id number] SP [id number] [place] [id number] Self [id number] [facility] Medigap Part B [id number] Self [id number] Managed Care - Community Plan [facility] P [id number] S [id number] UNHC COMMUNITY PLAN XIX [id number] 18 [id number] [place] [id number] Self [id number] [place] [id number] Self [id number] Managed Care - Community Plan [facility] P [id number] S [id number] Medicaid S [id number] S [id number] Self Pay P UNAVAILABLE S UNAVAILA BLE [facility] Health Maintenance Organization (HMO) [id number] Self [id number] UNHC COMMUNITY PLAN MCDHMO [id number] SP [id number] MEDICAID [id number] SP [id number] SELF PAY O [id number] S [id number] D [facility] P [id number] S [id number] SELF PAY UNAVAILABLE SP UNAVAILA BLE Problems, Conditions, and Diagnoses Code Display Name Description Problem Type Effective Dates Data Source(s) 268.9 vitamin D deficiency vitamin D deficiency 08/16 10:54:19 AM EDT [facility] R73.03 Prediabetes Prediabetes 08/17/2019 10:54:19 AM EDT [facility] V65.8 Person consulting for explanation of exa mination or test findings Person consulting for explanation of examination or test findings 08/17/2019 10:54:19 AM EDT [facility] 478.19 Congestion of nasal sinus Congestion of nasal sinus 08/10/2019 09:50:50 AM EDT [facility] [id number] Allergic contact dermatitis, unspecified cause Allergic contact dermatitis, unspecified cause 08/10/2019 09:50:50 AM EDT [facility] V70.0 Health Screening Health Screening 07/01/2019 01 :11:31 PM [facility] 525.10 Teeth extraction Teeth extraction 05/24/2019 10 :24:27 AM [facility] [id number] Dyspnea, unspecified Dyspnea, unspecified 05/22/2019 09:30:16 PM [facility] Results ID Date Data Source [id number] 03/01/2020 10:29:56 AM EDT [facility] Current Problems: vitamin D deficiency ( ICD-268.9) (WRJ39-E66.9)Prediabetes (YTD58-J03.03)Person consulting for explanation of examination or test findings (ICD-V65.8) (ZAF78-J81.2)Congestion of nasal sinus (ICD-478.19) (ICD10- R09.81)Allergic contact dermatitis, unspecified cause (GRS86-B72.9)Health Screening (ICD-V70.0) (EKE07-T66.9)Teeth extraction (ICD-525.10) (ICD10- K08.499)Dyspnea, unspecified (GKJ74-F50.00)PANIC DISORDER (ICD-300.01) (ICD10- F41.0)SPECIFIC LEARNING DISORDER, W/ MATH IMPAIRMENT, W/ CALCULATION, MILD (ICD- 315.1) (OPF26-P15.2)DENTAL CARIES EXTENDING INTO PULP (ICD-521.03) (ICD10-K 02.63)RELATIONSHIP DISTRESS WITH SPOUSE OR INTIMATE PARTNER (ICD-V61.8) (ICD10- Z63.0)PTSD (ICD-309.81) (BWY29-I64.10)Acute upper respiratory infection, unspecified (DMR87-O33.9)BMI 45.0-49.9 (ICD-V85.42) (LGO63-X87.42)MORBID OBESITY (ICD-278.01) (JEC02-D48.01)Acute frontal sinusitis, unspecified (ICD10- J01.10)Pleural effusion (ICD-511.9) (BKO10-V15)Crohn's disease of small intestine with other complication (YWE61-E86.018)Other chest pain (ICD10- R07.89)Generalized anxiety disorder (ICD-300.02) (TUU74-A94.1)Other mixed anxiety disorders (SUC39-A61.3)Chronic low back pain (ICD-724.2) (VEO63-Q33.5)Encounter for general adult medical examination with abnormal findings (ICD-V70.0) (EJA31-D45.01)Current Medications: VITAMIN D (ERGOCALCIFEROL) 87972 UNIT ORAL CAPSULE (ERGOCALCIFEROL) 1 po q wk for 12 wks; Route: ORALFLONASE ALLERGY RELIEF 50 MCG/ACT NASAL SUSPENSION (FLUTICASONE PROPIONATE) one spray to each nares twice daily; Route: NASALBETAMETHASONE DIPROPIONATE 0.05 % EXTERNAL CREAM (BETAMETHASONE DIPROPIONATE) apply to affected area twice daily as needed; Route: EXTERNALPREDNISONE 20 MG ORAL TABLET (PREDNISONE) take one tablet by mouth daily x 5 days; Route: ORALCYMBALTA 30 MG ORAL CAPSULE DELAYED RELEASE PARTICLES (DULOXETINE HCL) Take one capsule po QD; Route: ORALPROAIR HFA 108 (90 BASE) MCG/ACT INHALATION AEROSOL SOLUTION (ALBUTEROL SULFATE) 2 puffs inhaled Q4H as neededPRENATAL COMPLETE TABLET ( VIT-FE FUMARATE-FA TABS) one daily Dental Chart: Procedures:Type - CDT Code - Description B - (D0220) Intraoral, periapical, first radiographic image on Tooth # 31 (Performed by Peg Riley DDS) B - (D0140) Limited oral evaluation - problem focused on Tooth # 31 (Performed by Peg Rilye DDS) Chart Notes:danika (Mar 01 2020 11:07AM): Additional PPE requirements due to COVID-19 in the dental setting, N95, surgical mask, hair covering, gown and shield.S: CC:"I have had a problem with my tooth on the bottom right. I was supposed to get a root canal, but could not afford it and never followed through with anything else. This morning, ,I feel warmth and swelling in that area."O: RMHx (-)per pt. is taking control with no chance of . HPI:months PL:8 BP: 133/89. PA taken #31. #31 broken and decaye- non restorable. . Negative to palpation. No signs of infection at this time.A: NANETTE recommends pt. to follow up with existing OS referral to for extraction of #3. DX:#31 badly broken due to caries intot the pulp with no infection.P:follow up with OS referral.Informed Pt about new pain management policy of the clinic regarding about narcotic,told pt to alternate Ibuprophen 600- 800mg and tylenol 500mg every 4 to 6 hrs for pain when needed. Assisted By:AM NV: p/ePeg Cast DDS by danika (03/01/2020 11:06 AM): Tooth Notes and Watches:- Tooth 1 Dentition: changed from Permanent to Primary- Tooth 13 Watch: DistalRenetta Abdalla RDH by mel (11/09/2018 11:09 AM): - Tooth 15 Note: honduran the fillingBaPattie clark by yakov (05/24/2019 9:16 AM): - Tooth 16 Dentition: changed from Permanent to Primary- Tooth 17 Dentition: changed from Permanent to Primary- Tooth 18 Dentition: changed from Permanent to Primary- Tooth 19 Watch: MesialRenetta Abdalla RDH by mel (11/09/2018 11:09 AM): - Tooth 2 Watch: BuccalRenetta Abdalla RDH by mel (11/09/2018 11:08 AM): - Tooth 2 Note: Patient feels her tooth is bumpy. Dr. Loco wants to honduran the filling. If not Dr. Loco plans on replacing the existing fillingDuranPattie clark by yakov (05/24/2019 9:16 AM): - Tooth 32 Dentition: changed from Permanent to Primary- Tooth 4 Watch: Inga thompson Jackie by patricio (12/09/2018 2:40 PM): Assessment & Plan Medications:VITAMIN D (ERGOCALCIFEROL) 27276 UNIT ORAL CAPSULEFLONASE ALLERGY RELIEF 50 MCG/ACT NASAL SUSPENSIONBETAMETHASONE DIPROPIONATE 0.05 % EXTERNAL CREAMPREDNISONE 20 MG ORAL TABLETCYMBALTA 30 MG ORAL CAPSULE DELAYED RELEASE PARTICLESPROAIR HFA 108 (90 BASE) MCG/ACT INHALATION AEROSOL SOLUTIONPRENATAL COMPLETE TABLETAllergies:No Known Allergies (updated 08/10/2019) Name Value Range Interpretation Code Description Data Cony rce(s) Supporting Document(s) ID Date Data Source [id number] 08/17/2019 08:55:49 AM EDT [facility] Initial Intake Information from: patient Smoking, Tobacco, Vaping or Smoke Exposure StatusSmoke Status: former smokerTobacco Use: NoDo you vape? NoPassive Smoke Exposure: NoMenstrual HistoryLast Menstrual Period (LMP): 08/09/2019Any possibility of ? NoHealthcare HistorySince your last office visit...Have you been admitted to the hospital? No - [facility]- of sonHospital admission date reported today: 01/14/2018Have you been to an emergency room (ER) or urgent care clinic? No - [facility]-stomach pain- no DxEmergency room (ER) or urgent care date reported today: 07/31/2018Have you seen another healthcare provider? Yes - OBGYNHave you seen a dentist? Yes - NCFHIntake performed by: Mona Peralta MA, August 17, 2019 8:56 AMRate Your HealthIn general, would you say your health is? FairPain AssessmentAre you currently having any pain which... You would like your provider to address? No Affects your activity level? NoDepression Screening - PHQ-2Over the last two weeks, have you... Had little interest or pleasure in doing things? Not at all Been feeling down, depressed, or hopeless? Not at all PHQ-2 Score: 0Anxiety Screening - DUY-2Over the last two weeks, have you been... Feeling nervous, anxious, or on edge? Not at all Unable to stop or control worrying? Not at all DUY-2 Score: 0Infectious Disease / Travel ScreeningRecent travel for you or any close contacts? NoHave you had any close contact with anyone diagnosed with or under investigation for COVID-19 (coronavirus)? NoHave you had any of the following symptoms recently? Fever? NoRespiratory symptoms: cough, cold, congestion, shortness of breath, difficulty breathing? NoScreening, Brief Intervention, & Referral to Treatment (SBIRT)Pre-Screening Questions How many times have you have 4 or more drinks in a day? 0How many times have you used an illegal drug or used a prescription medication for a non-medical reason? 0Performed by: Mona Peralta MA, August 17, 2019 8:56 AMPatient History Medical History:AsthmaDepress ionMigrainesAnxietySurgical History: section l2Fuiyzdw removedFamily History:Father ( Throat Cancer)Sister ( PTSD)Maternal grandfather (Cancer, altheimzers)Social/Personal History: Chief ComplaintlabsHistory of Present Illness (HPI)Telemedicine visit with patient's location at their home and provider's location at [facility]. Additional person(s)participating in the visit: Scott BROWN, has received verbal consent from the patient/guardian to conduct this visit via telehealth. The patient has been made aware that they have the right to refuse telehealth; of my location and the security of the telehealth software; any other parties present in the session; and that they have a right to select another provider if chosen for a face to face visit. 24 yo female seen today for follow up on lab results. Pt denies smoking. Pt denies alcoholism. Pt denies illicit drug us. Pt states healthy diet and physical activities. HPI performed by: Georgette BROWN, August 17, 2019 10:35 AMTransitions of Care InboundProblem ReviewProblem List was reviewed and/or updated during this visit.Medication Reconciliation & ReviewMedication List was reviewed and/or updated during this visit, including review of any oryu-zsm-wjjlaoe medications, herbal therapies, and/or supplements.Allergy ReviewAllergy List was reviewed and/or updated during this visit.Provider Calculated and Reviewed all Clinical Protocols for patient today. Review of Systems General: Denies loss of appetite, chills, dizziness, fatigue, fever, continued fever, headache, feeling ill, sweats, night sweats, sleep disturbances, weight loss. Cardiovascular: Denies chest pain, palpitations, feeling faint, trouble breathing w/exertion, SOB upon lying down, SOB at night, peripheral edema, elevated blood pressure, decreased heart rate. Respiratory: Denies cough, difficulty breathing, shortness of breath, excessive sputum, coughing up blood, wheezing, chest pain. Gastrointestinal: Denies nausea, vomi ting, bleeding, burning, itching, irritation, cramps, diarrhea, constipation. Genitourinary: Denies urinary incontinence, pain with urination, burning with urination, urinary frequency, urinary hesitancy, urinary urgency, urinary urgency at night, incomplete emptying, blood in urine. Musculoskeletal: Denies back pain, joint pain, leg pain, joint swelling, body aches, muscle aches, muscle cramps, muscle weakness, stiffness, recent injury. Neurologic: Denies muscle impairment, weakness, numbness/tingling, seizures, slurred speech, feeling faint, tremors, vertigo, paralysis on one side, paralysis on both sides. Psychiatric: Denies depression, anxiety, memory loss, mental disturbance, suicidal ideation, homicidal ideation, hallucinations, paranoia, feeling stressed, hearing voices. Endocrine: Denies cold intolerance, heat intolerance, excessive thirst, excessive hunger, excessive urination, weight loss, weight gain. Physical ExamGeneral Appearance: well nourished, well hydrated, no acute distressEyes, External: conjunctivae and lids normal, EOMIRespiratory, Effort: no intercostal retractions or use of accessory musclesJudgment & Insight: intactCare Management Plan Transitions of CareInboundRate Your HealthIn general, would you say your health is? FairAssessment & Plan Problems:Added: Prediabetes (JRG15-V08.03) Assessment: Instructions: Recent lab results indicates prediabetes. Please start lifestyle changes to include healthy diet and physical activities.Please try to limit sugars and carbohydrates in your diet.Person consulting for explanation of examination or test findings (ICD-V65.8) (ICD10- Z71.2) Assessment: Instructions: We have reviewed your lab results with you today.vitamin D deficiency (ICD-268.9) (JUH75-G68.9) Assessment: Instructions: vitamin D medication sent to pharmacy for you today.Person consulting for explanation of examination or test findings (ICD-V65.8) (ICD10- Z71.2) Assessment: Lab rsults unremarkable except for HGA1c of 5.7 indicating prediabetes and vittamin D deficiency. Lifestyle changes discussed.Assessed:Health Screening (ICD-V70.0) (INC35-H29.9) Assessment: Instructions: Labs reviewed with you today. will recheck in 3 months.Patient Instructions/Care Plan: Prediabetes: Recent lab results indicates prediabetes. Please start lifestyle changes to include healthy diet and physical activities.Please try to limit sugars and carbohydrates in your diet.Person consulting for explanation of examination or test findings: We have reviewed your lab results with you today.vitamin D deficiency: vitamin D medication sent to pharmacy for you today.Health Screening: Labs reviewed with you today. will recheck in 3 months. Plan developed in collaboration with patient and/or familyMedications:VITAMIN D (ERGOCALCIFEROL) 32665 UNIT ORAL CAPSULEFLONASE ALLERGY RELIEF 50 MCG/ACT NASAL SUSPENSIONBETAMETHASONE DIPROPIONATE 0.05 % EXTERNAL CREAMPREDNISONE 20 MG ORAL TABLETCYMBALTA 30 MG ORAL CAPSULE DELAYED RELEASE PARTICLESPROAIR HFA 108 (90 BASE) MCG/ACT INHALATION AEROSOL SOLUTIONPRENATAL COMPLETE TABLETMedication Changes:New Prescription:VITAMIN D (ERGOCALCIFEROL) 57890 UNIT ORAL CAPSULE-1 po q wk for 12 wks Qty: 12[Capsule] Refills: 0 Method: ElectronicAllergies:No Known Allergies (updated 08/10/2019) Orders:COMP METABOLIC PANEL [CPT-93634] CBC W/DIFF [CPT-48695] HgBA1c [CPT-18587] Vitamin D 250H Unspecified [CPT-99301] L IPID PANEL [CPT-35236] Office Visit - Established, Level 3 [CPT-28285KX] Follow- Up Return to clinic: 3 months for follow up Additional Follow-Up: one week prior to next visit for blood work. Medications:VITAMIN D (ERGOCALCIFEROL) 30096 UNIT ORAL CAPSULE (ERGOCALCIFEROL) 1 po q wk for 12 wks #12[Capsule] x 0 Route:ORAL Entered and Authorized by: Georgette BROWN Method used: Electronically to [id number]* (retail) [id number] [place] [address] Ph: [phone] Note to Pharmacy: Route: ORAL; Indications: VITAMIN D DEFICIENCY RxID: [id number] signed by Georgette BROWN on 08/22/2019 at 9:02 AM Name Value Range Interpretation Code Description Data Cony rce(s) Supporting Document(s) ID Date Data Source [id number] 08/10/2019 09:16:00 AM EDT [facility] Name Value Range Interpretation Code Description Data Cony rce(s) Supporting Document(s) HCT 43.3 % 36.0-47.0 N [facility] HGB 13.8 g/dL 12.0-15.5 N [facility] MCH 31.9 G/DL pg 32.0-36.5 L [facility] MCHC 28.0 PG % 27.0-33.0 N [facility] PLATELETS 262 10 10*3/mm3 150-450 N [facility] RBC 4.92 10 10*6/mm3 4.00-5.40 N [facility] RDW 13.5 % 11.5-14.5 N [facility] WBC TOTAL 7.7 4.0-10.0 N [facility] ID Date Data Source [id number] 08/10/2019 09:16:00 AM EDT [facility] Name Value Range Interpretation Code Description Data Cony rce(s) Supporting Document(s) BG FASTING 94 mg/dL 70-100 N [facility] T4, FREE 0.92 ng/dL 0.76-1.46 N [facility] TSH 1.860 microintl units/mL 0.358-3.740 N [facility] VIT D25 TOT 19.1 ng/mL 30.0-100.0 L [facility] ID Date Data Source [id number] 08/10/2019 09:16:00 AM EDT [facility] Name Value Range Interpretation Code Description Data Cony rce(s) Supporting Document(s) HGBA1C 5.7 % N [facility] ID Date Data Source [id number] 08/10/2019 09:06:28 AM EDT [facility] Measurements & CalculationsHeight: 65 inches (5 ft. 5 in.) 165.10 cm Weight: 282 pounds 128.18 kg Body Mass Index (BMI): 47.10BMI Interpretation: Morbidly ObeseBody Surface Area (BSA): 2.29Weight Management Education Done (Nutrition/Physical Activity)Vital SignsTemperature: 98.7FPulse Rate: 72 beats/minuteRespiratory Rate: 14 respirations/minuteBlood Pressure: 103/62 O2 Saturation: 95% Vital Signs performed by: Bernadine Potter LPN, August 10, 2019 9:08 AMVital Signs performed by: Bernadine Potter LPN, August 10, 2019 9:08 AMInitial Intake Information from: patientRoom #: 9Smoking, Tobacco, Vaping or Smoke Exposure StatusSmoke Status: former smokerTobacco Use: NoDo you vape? NoMenstrual HistoryAny possibility of ? NoComments: Has implant in arm Healthcare HistorySince your last office visit...Have you been admitted to the hospital? NoHave you been to an emergency room (ER) or urgent care clinic? NoHave you seen another healthcare provider? Yes - OBGYNHave you seen a dentist? Yes - NCFHRate Your HealthIn general, would you say your health is? FairPain AssessmentAre you currently having any pain which... You would like your provider to address? No Affects your activity level? NoDepression Screening - PHQ-2Over the last two weeks, have you... Had little interest or pleasure in doing things? Not at all Been feeling down, depressed, or hopeless? Not at all PHQ-2 Score: 0Food InsecurityWithin the past year...Did you worry whether your food would run out before you got money to buy more? NoWas there a time when the food you bought didn't last and you didn't have money to get more? NoInfectious Disease / Travel ScreeningRecent travel for you or any close contacts? NoHave you had any close contact with anyone diagnosed with or under investigation for COVID-19 (coronavirus)? NoHave you had any of the following symptoms recently? Fever? NoRespiratory symptoms: cough, cold, congestion, shortness of breath, difficulty breathing? YesScreening, Brief Intervention, & Referral to Treatment (SBIRT)Pre-Screening Questions How many times have you have 4 or more drinks in a day? 0How many times have you used an illegal drug or used a prescription medication for a non-medical reason? 0Performed by: Bernadine Potter LPN, August 10, 2019 9:12 AMPatient History Medical History:AsthmaDepressionMigrainesAnxietySurgical History: section [id number] removedFamily History:Father ( Throat Cancer)Sister ( PTSD)Maternal grandfather (Cancer, altheimzers)Social/Personal History: Chief ComplaintRash on left side neck ,cough ,sore throat History of Present Illness (HPI)24 YO female here for Rash on neck , also c/o of cough and runny nose. Pt denies fevers. Pt states taht she received a tattoo one week ago on her left chest.Pt states rash to left neck started two days ago. Pt states cough runny nose and congession started one day ago. Pt denies other concerns at this time. HPI performed by: Georgette BROWN, August 10, 2019 9:24 AMTransitions of Care InboundProblem ReviewProblem List was reviewed and/or updated during this visit.Medication Reconciliation & ReviewMedication List was reviewed and/or updated during this visit, including review of any thwv-jcv-bhbbxze medications, herbal therapies, and/or supplements.Allergy ReviewAllergy List was reviewed and/or updated during this visit. Patient has no known allergies.Adult Preventive CareLabs/Meds/Other Counseling-Nutrition and Physical Activity:BMI Interpretation: Morbidly Obese (08/10/2019) Counseling: Done (08/10/2019) Physical Activity: Done (08/10/2019)Review of Systems General: Denies loss of appetite, chills, dizziness, fatigue, fever, continued fever, headache, feeling ill, sweats, night sweats, sleep disturbances, weight loss. Eyes: Denies blurring of vision, double vision, irritation, discharge, vision loss, eye pain, eye swelling, droopy eyelid, sensitivity to light, redness, itching. Ears/Nose/Throat: Complains of nasal congestion. Denies earache, ear discharge, ringing in ears, decreased hearing, nosebleeds, runny nose, sore throat, hoarseness, difficulty swallowing, dry mouth, tooth pain, bleeding gums, swollen glands. Cardiovascular: Denies chest pain, palpitations, feeling faint, trouble breathing w/exertion, SOB upon lying down, SOB at night, peripheral edema, elevated blood pressure, decreased heart rate. Respiratory: Complains of cough. Denies difficulty breathing, shortness of breath, excessive sputum, coughing up blood, wheezing, chest pain. Breast: Denies discoloration, tenderness, breast changes, breast lump, nipple discharge. Gastrointestinal: Denies nausea, vomiting, bleeding, burning, itching, irritation, cramps, constipation. Genitourinary: Denies urinary incontinence, pain with urination, burning with urination, urinary frequency, urinary hesitancy, urinary urgency, urinary urgency at night, incomplete emptying, blood in urine, pelvic pain. Musculoskeletal: Denies back pain, joint pain, leg pain, joint swelling, body aches, muscle aches, muscle cramps, muscle weakness, stiffness, recent injury. Skin: Complains of rash. Denies hives, redness, itching, dryness, nail changes, suspicious lesions, athlete's foot, rash on palms, rash on bottom of feet. left neck rashNeurologic: Denies muscle impairment, weakness, numbness/tingling, seizures, slurred speech, feeling faint, tremors, vertigo, paralysis on one side, paralysis on both sides. Psychiatric: Denies depression, anxiety, memory loss, mental disturbance, suicidal ideation, homicidal ideation, hallucinations, paranoia, feeling stressed, hearing voices. Endocrine: Denies cold intolerance, heat intolerance, excessive thirst, excessive hunger, excessive urination, weight loss, weight gain. Physical ExamGeneral Appearance: well nourished, well hydrated, no acute distressEyes, External: conjunctivae and lids normal, EOMIRespiratory, Auscultation: clear to auscultation bilaterally; no rales, rhonchi, or wheezesRespiratory, Effort: no intercostal retractions or use of accessory musclesCardiovascular, Auscultation: S1, S2 audible; no murmur, rub, or gallop; RRRPeripheral Circulation: no clubbing, cyanosis, edema, or varicositiesAbdomen: soft, non-tender, no masses, bowel sounds normalGait & Station: normalSkin, Inspection: no rashes, lesions, or ulcerationsOrientation: oriented to time, place, and personMood & Affect: no depression, anxiety, or agitationJudgment & Insight: intactCare Management Plan Transitions of CareInboundRate Your HealthIn general, would you say your health is? FairAssessment & Plan Problems:Added: Congestion of nasal sinus (ICD-478.19) (WOE52-K78.81) Assessment: Instructions: We have sent a prescription to your pharmacy today. Please use medication as prescribed. Please report any major side effects. Please try to maintain adequate fluid intake. Please try to maintain adequate rest and good nutrition.If symptoms worsen please return to clinnic or the ER.Allergic contact dermatitis, unspecified cause (YAI52-Y19.9) Assessment: Instructions: We have sent a prescription to your pharmacy today. Please use medication as prescribed. Please report any major side effects.If symptoms worsen please return to clinic or the ERPatient Instructions/Care Plan: Congestion of nasal sinus: We have sent a prescription to your pharmacy today. Please use medication as prescribed. Please report any major side effects. Please try to maintain adequate fluid intake. Please try to maintain adequate rest and good nutrition.If symptoms worsen please return to clinnic or the ER.Allergic contact dermatitis- unspecified cause: We have sent a prescription to your pharmacy today. Please use medication as prescribed. Please report any major side effects.If symptoms worsen please return to clinic or the ER Plan developed in collaboration with patient and/or familyMedications:FLONASE ALLERGY RELIEF 50 MCG/ACT NASAL SUSPENSIONBETAMETHASONE DIPROPIONATE 0.05 % EXTERNAL CREAMPREDNISONE 20 MG ORAL TABLETCYMBALTA 30 MG ORAL CAPSULE DELAYED RELEASE PARTICLESPROAIR HFA 108 (90 BASE) MCG/ACT INHALATION AEROSOL SOLUTIONPRENATAL COMPLETE TABLETMedication Changes:New Prescription:PREDNISONE 20 MG ORAL TABLET-take one tablet by mouth daily x 5 days Qty: 5[Tablet] Refills: 0 Method: ElectronicBETAMETHASONE DIPROPIONATE 0.05 % EXTERNAL CREAM-apply to affected area twice daily as needed Qty: 1[Tube] Refills: 0 Method: ElectronicFLONASE ALLERGY RELIEF 50 MCG/ACT NASAL SUSPENSION-one spray to each nares twice daily Qty: 1[Container] Refills: 0 Method: ElectronicAllergies:No Known Allergies (updated 08/10/2019) Orders:Adult - Ofc Vst, EST, Level III [[id number]] Follow-Up Return to clinic: as scheduled and as needed. Clinical Visit Summary CompletedMedications:FLONASE ALLERGY RELIEF 50 MCG/ACT NASAL SUSPENSION (FLUTICASONE PROPIONATE) one spray to each nares twice daily #1[Container] x 0 Route:NASAL Entered and Authorized by: Georgette BROWN Method used: Electronically to [id number]* (retail) [id number] [facility] [place] [address] Fax: Note to Pharmacy: Route: NASAL; Indications: CONGESTION OF NASAL SINUS RxID: [id number] DIPROPIONATE 0.05 % EXTERNAL CREA M (BETAMETHASONE DIPROPIONATE) apply to affected area twice daily as needed #1[Tube] x 0 Route:EXTERNAL Entered and Authorized by: Georgette BROWN Method used: Electronically to [facility] #[id number]* (retail) [address] [place] [address] [place] [address] Note to Pharmacy: Route: EXTERNAL; Indications: ALLERGIC CONTACT DERMATITIS, UNSPECIFIED CAUSE RxID: [id number] 20 MG ORAL TABLET (PREDNISONE) take one tablet by mouth daily x 5 days #5[Tablet] x 0 Route:ORAL Entered and Authorized by: Georgette BROWN Method used: Electronically to [id number]* (retail) [address] [place] [address] [place] [address] Note to Pharmacy: Route: ORAL; Indications: ALLERGIC CONTACT DERMATITIS, UNSPECIFIED CAUSE RxID: [id number] signed by Georgette BROWN on 08/14/2019 at 5:02 PM Name Value Range Interpretation Code Description Data Cony rce(s) Supporting Document(s) ID Date Data Source [id number] 07/06/2019 08:59:28 AM [facility] Current Problems: Health Screening (ICD- V70.0) (DIP52-D51.9)Teeth extraction (ICD-525.10) (LZX79-R97.499)Dyspnea, unspecified (ZJZ71-E58.00)PANIC DISORDER (ICD-300.01) (YIQ98-P18.0)SPECIFIC LEARNING DISORDER, W/ MATH IMPAIRMENT, W/ CALCULATION, MILD (ICD-315.1) (DDC51-K29.2)DENTAL CARIES EXTENDING INTO PULP (ICD-521.03) (ZNK19-T62.63)RELATIONSHIP DISTRESS WITH SPOUSE OR INTIMATE PARTNER (ICD-V61.8) (KCK98-N05.0)PTSD (ICD-309.81) (NBT54-Z92.10)Acute upper respiratory infection, unspecified (JTU87-J11.9)BMI 45.0-49.9 (ICD-V85.42) (XKW31-K06.42)MORBID OBESITY (ICD-278.01) (FUZ49-D12.01)Acute frontal sinusitis, unspecified (QSI43-A13.10)Pleural effusion (ICD-511.9) (QDZ72-J64)Crohn's disease of small intestine with other complication (IJI03-F46.018)Other chest pain (IWK98-R31.89)Generalized anxiety disorder (ICD-300.02) (UJP67-F84.1)Other mixed anxiety disorders (FTU03-Z49.3)Chronic low back pain (ICD-724.2) (ICD10- M54.5)Encounter for general adult medical examination with abnormal findings (ICD-V70.0) (AOD41-X19.01)Problem list reviewed during this update.Current Medications: CYMBALTA 30 MG ORAL CAPSULE DELAYED RELEASE PARTICLES (DULOXETINE HCL) Take one capsule po QD; Route: ORALPROAIR HFA 108 (90 BASE) MCG/ACT INHALATION AEROSOL SOLUTION (ALBUTEROL SULFATE) 2 puffs inhaled Q4H as neededPRENATAL COMPLETE TABLET ( VIT-FE FUMARATE-FA TABS) one dailyMedication list reviewed during this update.Allergy list reviewed during this update.No known allergies. Dental Chart: Procedures:Type - CDT Code - Description B - (D2222) No Charge Visit (Performed by Moriah Loco DMD) Chart Notes:david (Jul 06 2019 12:58PM): RM (-)Per Pt. . CC: none. No LA, Operative: # 2 and 15 polished. Occlusion checked and polished. No complications. POI. Assisted by PD Pt was cooperative. NV: P/Moriah Hopkins DMD by david (07/06/2019 12:58 PM): Tooth Notes and Watches:- Tooth 1 Dentition: changed from Permanent to Primary- Tooth 13 Watch: DistalRenetta Abdalla RDH by mel (11/09/2018 11:09 AM): - Tooth 15 Note: honduran the fillingBakerPattie by yakov (05/24/2019 9:16 AM): - Tooth 16 Dentition: changed from Permanent to Primary- Tooth 17 Dentition: changed from Permanent to Primary- Tooth 18 Dentition: changed from Permanent to Primary- Tooth 19 Watch: MesialRenetta Abdalla RDH by mel (11/09/2018 11:09 AM): - Tooth 2 Watch: BuccalRenetta Abdalla RDH by mel (11/09/2018 11:08 AM): - Tooth 2 Note: Patient feels her tooth is bumpy. Dr. Loco wants to honduran the filling. If not Dr. Loco plans on replacing the existing fillingBaPattie clark by yakov (05/24/2019 9:16 AM): - Tooth 32 Dentition: changed from Permanent to Primary- Tooth 4 Watch: Inga thompson Jackie by patricio (12/09/2018 2:40 PM): Assessment & Plan Medications:CYMBALTA 30 MG ORAL CAPSULE DELAYED RELEASE PARTICLESPROAIR HFA 108 (90 BASE) MCG/ACT INHALATION AEROSOL SOLUTIONPRENATAL COMPLETE TABLETAllergies:No Known Allergies (updated 07/06/2019) Name Value Range Interpretation Code Description Data Cony rce(s) Supporting Document(s) ID Date Data Source [id number] 07/01/2019 11:39:24 AM [facility] Measurements & CalculationsHeight: 65 inches (5 ft. 5 in.) 165.10 cm Weight: 278 pounds 6 oz. 126.54 kg Body Mass Index (BMI): 46.49BMI Interpretation: Morbidly ObeseBody Surface Area (BSA): 2.28Weight Management Education Done (Nutrition/Physical Activity)Vital SignsTemperature: 98.5FPulse Rate: 77 beats/minuteRespiratory Rate: 16 respirations/minuteBlood Pressure: 113/71 O2 Saturation: 96% Vital Signs performed by: Bernadine Potter LPN, July 01, 2019 11:41 AMVital Signs performed by: Bernadine Potter LPN, July 01, 2019 11:41 AMInitial Intake Information from: patientRoom #: 11Smoking, Tobacco, Vaping or Smoke Exposure StatusSmoke Status: former smokerTobacco Use: NoDo you vape? NoPassive Smoke Exposure: NoMenstrual HistoryAny possibility of ? NoComments: has pregancy implantHealthcare HistorySince your last office visit...Have you been admitted to the hospital? NoHave you been to an emergency room (ER) or urgent care clinic? NoHave you seen another healthcare provider? NoHave you seen a dentist? Yes - NCFHRate Your HealthIn general, would you say your health is? GoodPain AssessmentAre you currently having any pain which... You would like your provider to address? No Affects your activity level? NoDepression Screening - PHQ-2Over the last two weeks, have you... Had little interest or pleasure in doing things? Several days Been feeling down, depressed, or hopeless? Several days PHQ-2 Score: 2Anxiety Screening - DUY-2Over the last two weeks, have you been... Feeling nervous, anxious, or on edge? Nearly every day Unable to stop or control worrying? Nearly every day DUY-2 Score: 6Food InsecurityWithin the past year...Did you worry whether your food would run out before you got money to buy more? NoWas there a time when the food you bought didn't last and you didn't have money to get more? NoInfectious Disease / Travel ScreeningRecent travel for you, your family, and/or any sexual partners? NoGeneralized Anxiety Disorder 7-Item Screening (DUY-7)Answer Guide:0 = Not at all1 = Several days2 = Over half the days3 = Nearly every dayOver the last 2 weeks, how often have you been bothered by the following problems?Feeling nervous, anxious, or on edge: 3Not being able to stop or control worryinWorrying too much about different things: 3Trouble relaxinBeing so restless that it's hard to sit still: 0Becoming easily annoyed or irritable: 3Feeling afraid as if something awful might happen: 3Answer Guide:0 = Not difficult at all1 = Somewhat difficult2 = Very difficult3 = Extremely difficultHow difficult have these made it for you to do your work, take care of things at home, or get along with other people? 3GAD-7 Screening Results DUY-2 Score: 6GAD-7 Score: 17Functional Impairment: Extremely difficultRecommendation: Severe anxietyPHQ-9 1. Over the last 2 weeks, patient reports the following frequency of symptoms: a. Little interest or pleasure in doing things -Several days b. Feeling down, depressed, or hopeless -Several days c. Trouble falling asleep, staying asleep, or sleeping too much -Nearly every day d. Feeling tired or having little energy -Nearly every day e. Poor appetite or overeating -Not at all f. Feeling bad about yourself, feeling that you are a failure, or feeling that you have let yourself or your family down -Several days g. Trouble concentrating on things such as reading the newspaper or watching television -Not at all h. Moving or speaking so slowly that other people could have noticed. Or being so fidgety or restless that you have been moving around a lot more than usual -Not at all i. Thinking that you would be better off or that you want to hurt yourself in some way -Not at all2. If you checked off any problems, how difficult have these problems made it for you to do your work, take care of things at home, or get along with other people? -Extremely DifficultToday's PHQ-9 Results Score: 9 Severity: Mild Diagnosis Rec ommendation: No recommendation Functional Impairment: Extremely DifficultDepression Screening Follow-Up ActionToday's Follow-Up Action Depression follow-up done. Follow-Up Action: pressently in therapy in HouseScreening, Brief Intervention, & Referral to Treatment (SBIRT)Pre-Screening Questions How many times have you have 4 or more drinks in a day? 0How many times have you used an illegal drug or used a prescription medication for a non- medical reason? 0Performed by: Bernadine Potter LPN, July 01, 2019 11:48 AMPatient History Social/Personal History: Chief Complaintdark ear wax in left ear everyday History of Present Illness (HPI)24 yo female here for follow up anxiety feels new med cymbalta is starting to help her Pt states increased tiredness, trying to find "work arounds". Pt would like to stay on cymbalta a little longer, will reassess in 4 weeks. Pt states that therapy is going well. HPI performed by: Georgette BROWN, July 01, 2019 12:21 PMTransitions of Care InboundProblem ReviewProblem List was reviewed and/or updated during this visit.Medication Reconciliation & ReviewMedication List was reviewed and/or updated during this visit, including review of any safk-oew-yzcmbzq medications, herbal therapies, and/or supplements.Allergy ReviewAllergy List was reviewed and/or updated during this visit.Adult Preventive CareLabs/Meds/Other Counseling-Nutrition and Physical Activity:BMI Interpretation: Morbidly Obese (07/01/2019) Counseling: Done (07/01/2019) Physical Activity: Done (07/01/2019)Review of Systems General: Denies loss of appetite, chills, dizziness, fatigue, fever, continued fever, headache, feeling ill, sweats, night sweats, sleep disturbances, weight loss. Eyes: Denies blurring of vision, double vision, irritation, discharge, vision loss, eye pain, eye swelling, droopy eyelid, sensitivity to light, redness, itching. Ears/Nose/Throat: Denies earache, ear discharge, ringing in ears, decreased hearing, nasal congestion, nosebleeds, runny nose, sore throat, hoarseness, difficulty swallowing, dry mouth, tooth pain, bleeding gums, swollen glands. Cardiovascular: Denies chest pain, palpitations, feeling faint, trouble breathing w/exertion, SOB upon lying down, SOB at night, peripheral edema, elevated blood pressure, decreased heart rate. Respiratory: Denies cough, difficulty breathing, shortness of breath, excessive sputum, coughing up blood, wheezing, chest pain. Breast: Denies discoloration, tenderness, breast changes, breast lump, nipple discharge. Gastrointestinal: Denies nausea, vomiting, bleeding, burning, itching, irritation, cramps, diarrhea, constipation. Genitourinary: Denies urinary incontinence, pain with urination, burning with urination, urinary frequency, urinary hesitancy, urinary urgency, urinary urgency at night, incomplete emptying, blood in urine, pelvic pain. Musculoskeletal: Denies back pain, joint pain, leg pain, joint swelling, body aches, muscle aches, muscle cramps, muscle weakness, stiffness, recent injury. Skin: Denies rash, hives, redness, itching, dryness, nail changes, suspicious lesions, athlete's foot, rash on palms, rash on bottom of feet. Neurologic: Denies muscle impairment, weakness, numbness/tingling, seizures, slurred speech, feeling faint, tremors, vertigo, paralysis on one side, paralysis on both sides. Psychiatric: Complains of depression, anxiety. Denies memory loss, men franc disturbance, suicidal ideation, homicidal ideation, hallucinations, paranoia, feeling stressed, hearing voices. Endocrine: Denies cold intolerance, heat intolerance, excessive thirst, excessive hunger, excessive urination, weight loss, weight gain. Physical ExamGeneral Appearance: well nourished, well hydrated, no acute distressEyes, External: conjunctivae and lids normal, EOMIRespiratory, Auscultation: clear to auscultation bilaterally; no rales, rhonchi, or wheezesRespiratory, Effort: no intercostal retractions or use of accessory musclesCardiovascular, Auscultation: S1, S2 audible; no murmur, rub, or gallop; RRRPeripheral Circulation: no clubbing, cyanosis, edema, or varicositiesAbdomen: obese, soft, non-tender, no masses, bowel sounds normalGait & Station: normalSkin, Inspection: no rashes, lesions, or ulcerationsOrientation: oriented to time, place, and personMood & Affect: no depression, anxiety, or agitationJudgment & Insight: intactCare Management Plan Transitions of CareInboundRate Your HealthIn general, would you say your health is? GoodAssessment & Plan Problems:Added: Health Screening (ICD-V70.0) (ICD10- Z13.9) Assessment: Instructions: We have ordered fasting labs for you today. Please return prior to your next visit to have labs drawn. Please fast for 8-10 hours prior.Assessed:Generalized anxiety disorder (ICD-300.02) (ICD10- F41.1) Assessment: Instructions: Please continue medication as prescribed. Please continue to monitor and report triggers causing increased anxiety and or depression. Please continue to follow with your Therapist as scheduled. Please continue lifestyle changes to include Meditation , healthy diet and physical activities.Dyspnea, unspecified (WMO87-D13.00) Assessment: Improved per patient with use of inhaler. Pt states using inhaler 1-2 times weekly. Instructions: May continue use of inhaler as needed. Please try to rest frequently and Please try to change your position slowly.Patient Instructions/Care Plan: Generalized anxiety disorder: Please continue medication as prescribed. Please continue to monitor and report triggers causing increased anxiety and or depression. Please continue to follow with your Therapist as scheduled. Please continue lifestyle changes to include Meditation , healthy diet and physical activities.Health Screening: We have ordered fasting labs for you today. Please return prior to your next visit to have labs drawn. Please fast for 8-10 hours prior.Dyspnea- unspecified: May continue use of inhaler as needed. Please try to rest frequently and Please try to change your position slowly. Plan developed in collaboration with patient and/or familyMedications:CYMBALTA 30 MG ORAL CAPSULE DELAYED RELEASE PARTICLESPROAIR HFA 108 (90 BASE) MCG/ACT INHALATION AEROSOL SOLUTIONPRENATAL COMPLETE TABLETAllergies:No Known Allergies (updated 11/09/2018) Orders:COMP METABOLIC PANEL [CPT-61856] CBC W/DIFF [CPT-86150] HgBA1c [CPT-96682] LIPID PANEL [CPT- 50488] TSH [CPT-92136] T-4 free [CPT-97295] Vitamin D 250H Unspecified [CPT- 08987] URINALYSIS [CPT-94376] Adult - Ofc Vst, EST, Level III [CPT-22593] Follow-Up Return to clinic: 4 weeks for follow up Clinical Visit Summary Completed][Immunization Management] Name Value Range Interpretation Code Description Data Cony rce(s) Supporting Document(s) ID Date Data Source [id number] 05/24/2019 09:01:43 AM [facility] Patient History Medical History:AsthmaDe pressionMigrainesAnxietyFamily History:Father ( Throat Cancer)Sister ( PTSD)Maternal grandfather (Cancer, altheimzers)Social/Personal History: Smoking Status: former smokerCurrent Problems: Teeth extraction (ICD-525.10) (OBO03-D08.499)Dyspnea, unspecified (FFI75-B65.00)PANIC DISORDER (ICD-300.01) (XXS35-N41.0)SPECIFIC LEARNING DISORDER, W/ MATH IMPAIRMENT, W/ CALCULATION, MILD (ICD-315.1) (ICD10- F81.2)DENTAL CARIES EXTENDING INTO PULP (ICD-521.03) (YCL80-Q20.63)RELATIONSHIP DISTRESS WITH SPOUSE OR INTIMATE PARTNER (ICD-V61.8) (JLO34-X89.0)PTSD (ICD- 309.81) (BEK63-T37.10)Acute upper respiratory infection, unspecified (ICD10- J06.9)BMI 45.0-49.9 (ICD-V85.42) (ZRI90-P84.42)MORBID OBESITY (ICD-278.01) (SHR21-N65.01)Acute frontal sinusitis, unspecified (UBA02-F48.10)Pleural effusion (ICD-511.9) (TUY76-M52)Crohn's disease of small intestine with other complication (YKL48-D20.018)Other chest pain (WBS70-Y57.89)Generalized anxiety disorder (ICD-300.02) (RDE78-Z23.1)Other mixed anxiety disorders (ICD10- F41.3)Chronic low back pain (ICD-724.2) (IAB56-F88.5)Encounter for general adult medical examination with abnormal findings (ICD-V70.0) (AVU69-R75.01)Current Medications: CYMBALTA 30 MG ORAL CAPSULE DELAYED RELEASE PARTICLES (DULOXETINE HCL) Take one capsule po QD; Route: ORALPROAIR HFA 108 (90 BASE) MCG/ACT INHALATION AEROSOL SOLUTION (ALBUTEROL SULFATE) 2 puffs inhaled Q4H as neededPRENATAL COMPLETE TABLET ( VIT-FE FUMARATE-FA TABS) one dailyPast Medical History:(reviewed - no changes required) AsthmaDepressionMigrainesAnxiety Dental Chart: Procedures:Type - CDT Code - Description B - (D0330) Panoramic film (Performed by Pattie Maldonado) B - (D0120) Periodic oral evaluation - established patient (Performed by Moriah Loco DMD) B - (D1110) Prophylaxis, adult (Performed by Pattie Maldonado) Treatments:Type - CDT Code - Description T - (D7140) Extraction, erupted tooth or exposed root (elevation and/or forceps removal) on Tooth # 31 (Performed by Pattie Maldonado) T - (D2150) Amalgam, 2 surfaces, primary or permanent on Tooth # 2 on Tooth Surface OB (Performed by Pattie Maldonado) Chart Notes:david (May 24 2019 10:24AM): [facility](-). CC: none. Reviewed Xrays. Exam: no caries detected, honduran of #2B and #15O needed possible replacement of #2B filling needed.. OCS: WNL, IO/ EO completed, No significant hard findings upon clinical exam Pt was cooperative.OHI givenReferral: N/ANV:recallPattie Maldonado by david (05/24/2019 10:24 AM): ; yakov (May 24 2019 9:43AM): [facility](-)cc-My two upper teeth that i got fillings done feel bumpy/highDr. Claudy plans on polishing # 15 and #2. Patient was informed that he might have to replace the existing composite on # 3Patient had a consult for # 31 - insurance will not cover RCT as per patient. Referred patient for extraction Adult prophy -ultrasonic, handscaled, brushed with mint prophy paste , flossed, PANOH-goodPatient reported brushing twice/day, not flossing regularly. Patient uses Listerine zero total careTrace marginal biofilm with trace marginal and interproximal calculus in sextant 5Used ultrasonic and hand instrumentsTissues- mild bleeding on flossingOHI-brushing am pm, flossing and then using Listerine zero total carePatient was cooperativeNV-fillings - Polishing # 2 and 15 and possibly replacing the existing composite on # 2BPattie cohn by yakov (05/24/2019 9:42 AM): Tooth Notes and Watches:- Tooth 1 Dentition: changed from Permanent to Primary- Tooth 13 Watch: DistalRenetta Abdalla RDH by mel (11/09/2018 11:09 AM): - Tooth 15 Note: honduran the fillingPattie Maldonado by yakov (05/24/2019 9:16 AM): - Tooth 16 Dentition: changed from Permanent to Primary- Tooth 17 Dentition: changed from Permanent to Primary- Tooth 18 Dentition: changed from Permanent to Primary- Tooth 19 Watch: MesialRenetta Abdalla RDH by mel (11/09/2018 11:09 AM): - Tooth 2 Watch: BuccalRenetta Abdalla RDH by mel (11/09/2018 11:08 AM): - Tooth 2 Note: Patient feels her tooth is bumpy. Dr. Loco wants to honduran the filling. If not Dr. Loco plans on replacing the existing fillingPattie Maldonado by yakov (05/24/2019 9:16 AM): - Tooth 32 Dentition: changed from Permanent to Primary- Tooth 4 Watch: Inga thompson Jackie by patricio (12/09/2018 2:40 PM): Assessment & Plan Problems:Added: Teeth extraction (ICD-525.10) (VHS89-V50.499)Medications:CYMBALTA 30 MG ORAL CAPSULE DELAYED RELEASE PARTICLESPROAIR HFA 108 (90 BASE) MCG/ACT INHALATION AEROSOL SOLUTIONPRENATAL COMPLETE TABLETAllergies:No Known Allergies (updated 11/09/2018) Orders:Oral Surgery Referral [CPT-38160] Name Value Range Interpretation Code Description Data Cony rce(s) Supporting Document(s) ID Date Data Source [id number] 05/21/2019 04:57:37 PM [facility] Measurements & CalculationsHeight: 65 inches (5 ft. 5 in.) 165.10 cm Weight: 275.8 pounds 125.36 kg Body Mass Index (BMI): 46.06BMI Interpretation: Morbidly ObeseBody Surface Area (BSA): 2.27Weight Management Education Done (Nutrition/Physical Activity)Vital SignsTemperature: 98.8F oral Pulse Rate: 89 beats/minuteRespiratory Rate: 17 respirations/minuteBlood Pressure: 114/73 left arm sitting automaticO2 Saturation: 99% room airVital Signs performed by: Ida Wooten MA, May 21, 2019 5:03 PMInitial Intake Information from: patientRoom #: 15Infectious Disease- Travel Have you or your sexual partner travelled outside of the country recently? NoSmoking, Tobacco or Smoke Exposure StatusSmoke Status: former smokerTobacco Use: NoPassive Smoke Exposure: NoMenstrual HistoryLast Menstrual Period (LMP): 04/24/2017Any possibility of ? NoHealthcare HistorySince your last office visit...Have you been admitted to the hospital? No - [facility]- of sonHospital admission date reported today: 01/14/2018Have you been to an emergency room (ER) or urgent care clinic? No - [facility]-stomach pain- no DxEmergency room (ER) or urgent care date reported today: 07/31/2018Have you seen another healthcare provider? Yes - OBGYNHave you seen a dentist? Yes - in houseIntake performed by: Ida Wooten MA, May 21, 2019 5:00 PMRate Your HealthIn general, would you say your health is? GoodPain AssessmentAre you currently having any pain which... You would like your provider to address? No Affects your activity level? NoDepression Screening - PHQ-2Over the last two weeks, have you... Had little interest or pleasure in doing things? Not at all Been feeling down, depressed, or hopeless? Not at all PHQ-2 Score: 0Anxiety Screening - DUY-2Over the last two weeks, have you been... Feeling nervous, anxious, or on edge? Not at all Unable to stop or control worrying? Not at all DUY-2 Score: 0Infectious Disease- Travel Cont. Any possibility of ? NoScreening, Brief Intervention, & Referral to Treatment (SBIRT)Pre- Screening Questions How many times have you have 4 or more drinks in a day? 0How many times have you used an illegal drug or used a prescription medication for a non-medical reason? 0Performed by: Ida Wooten MA, May 21, 2019 5:01 PMPatient History Medical History:AsthmaDepressionMigrainesAnxietySurgical History: section y4Jimgzig removedFamily History:Father ( Throat Cancer)Sister ( PTSD)Maternal grandfather (Cancer, altheimzers)Social/Personal History: Smoking Status: former smokerChief Complaintfollow-up visit asthmaHistory of Present Illness (HPI)24 y/o female here for a same day visit, for about the last three days she has had an uncomfortable feeling in her upper chest, she doesn't feel as if she can get a full deep breath in, especially while yawning. No cough, congestion, chest pain. Patient has symptoms before but not as long. Usually her symptoms would last hours. Patient is unsure if it is due to her asthma or if she has a panic attack.Patient has a history of panic attacks. Patient reports having panic attacks about twice a month. Patient has "bad anxiety." Patient sees Lisaen for counseling. Patient would like to see a psychiatrist for symptoms.Patient is currently breast feeding her son who is 16 months old.Transitions of Care InboundProblem ReviewProblem List was reviewed and/or updated during this visit.Medication Reconciliation & ReviewMedication List was reviewed and/or updated during this visit, including review of any ugjy-ymc-bbtdhnl medications, herbal therapies, and/or supplements.Allergy ReviewAllergy List was reviewed and/or updated during this visit.Adult Preventive CareProvider Calculated and Reviewed all Clinical Protocols for patient today. Labs/Meds/Other Counseling-Nutrition and Physical Activity:BMI Interpretation: Morbidly Obese (05/21/2019) Counseling: Done (05/21/2019) Physical Activity: Done (05/21/2019)Cancer Screening Pap Smear/HPV TestingReviewed: Previous Comments: pt states she had a pap November 2016 (03/04/2017)Today's Comments: pt states she had a pap November 2016Review of Systems General: Complains of fatigue. Denies dizziness, fever, headache. Eyes: Complains of blurring of vision. Cardiovascular: Denies chest pain, palpitations, feeling faint. Respiratory: Complains of shortness of breath. Denies cough, difficulty breathing, wheezing. Gastrointestinal: Denies nausea, vomiting, diarrhea. Psychiatric: Complains of depression, anxiety. Denies suicidal ideation, homicidal ideation. Physical ExamGeneral Appearance: well nourished, well hydrated, no acute distressEyes, External: conjunctivae and lids normal, EOMIRespiratory, Auscultation: clear to auscultation bilaterally; no rales, rhonchi, or wheezesRespiratory, Effort: no intercostal retractions or use of accessory musclesCardiovascular, Auscultation: S1, S2 audible; no murmur, rub, or gallop; RRRGait & Station: normalOrientation: oriented to time, place, and personMood & Affect: no depression, anxiety, or agitationJudgment & Insight: intactCare Management Plan Transitions of CareInboundRate Your HealthIn general, would you say your health is? GoodAssessment & Plan Problems:Added: Dyspnea, unspecified (XDM60-R48.00) Assessment: Instructions: Symptoms most likely related to anxiety disorder.Patient will be started on Cymbalta.Instructed patient to go to ER if symptoms worsen.Assessed:PANIC DISORDER (ICD-300.01) (JXT76-Y69.0) Assessment: Instructions: Refer to telepsychiatry for symptom managementGeneralized anxiety disorder (ICD-300.02) (QAR17-S22.1) Assessment: Instructions: Start trial of Cymbalta 30 mg QD; Discussed potential medication side effectsConsider increasing dose at next visit based on patient's response to medicationPatient Instructions/Care Plan: PANIC DISORDER: Refer to telepsychiatry for symptom managementGeneralized anxiety disorder: Start trial of Cymbalta 30 mg QD; Discussed potential medication side effectsConsider increasing dose at next visit based on patient's response to medicationDyspnea- unspecified: Symptoms most likely related to anxiety disorder.Patient will be started on Cymbalta.Instructed patient to go to ER if symptoms worsen. Plan developed in collaboration with patient and/or familyMedications:CYMBALTA 30 MG ORAL CAPSULE DELAYED RELEASE PARTICLESPROAIR HFA 108 (90 BASE) MCG/ACT INHALATION AEROSOL SOLUTIONPRENATAL COMPLETE TABLETMedication Changes:New Prescription:PROAIR HFA 108 (90 BASE) MCG/ACT INHALATION AEROSOL SOLUTION-2 puffs inhaled Q4H as needed Qty: 1[Inhaler] Refills: 1 Method: ElectronicCYMBALTA 30 MG ORAL CAPSULE DELAYED RELEASE PARTICLES-Take one capsule po QD Qty: 30[Capsule] Refills: 1 Method: ElectronicRemoved:TYLENOL 500 MG/15ML ORAL LIQUIDAllergies:No Known Allergies (updated 11/09/2018) Orders:Telepsychiatry Consult [CPT-00338] Adult - Ofc Vst, EST, Level III [CPT-25261] Follow-Up Return to clinic: in 6 weeks for follow upAdditional Follow-Up: anxietyMedications:CYMBALTA 30 MG ORAL CAPSULE DELAYED RELEASE PARTICLES (DULOXETINE HCL) Take one capsule po QD #30[Capsule] x 1 Route:ORAL Entered and Authorized by: Felicia BROWN Method used: Electronically to [facility]* ([facility]) [address] [place] [address] [address] [place] [address] Note to Pharmacy: Route: ORAL; RxID: [id number] HFA 108 (90 BASE) MCG/ACT INHALATION AEROSOL SOLUTION (ALBUTEROL SULFATE) 2 puffs inhaled Q4H as needed #1[Inhaler] x 1 Entered and Authorized by: Felicia BROWN Method used: Electronically to [facility]* (retail) [address] [place] [address] [place] [address] Fax: Note to Pharmacy: Route: INH; RxID: [id number] signed by Felicia BROWN on 05/22/2019 at 9:30 PM Name Value Range Interpretation Code Description Data Cony rce(s) Supporting Document(s) Procedure
[2020-05-31] MEDS ORDERED: SERT50TA29 (12:11)
--- OUTSIDE RECORDS SUMMARY | 2020-05-31 12:31 | CCD ---
Author Author [facility] Organization [facility] Address Unknown Phone Unavailable Care Team Providers Care Senior Principal Process Engineer Name Role Phone Felicia StacyP Unavailable Unavailable Wiliam StacyP-BC Unavailable Unavailable Wiliam StacyP-BC Unavailable Unavailable Wiliam StacyP-BC Unavailable Unavailable Wiliam StacyP-BC Unavailable Unavailable Wiliam Stacy BANK ADVISOR-BC Unavailable Unavailable Wiliam StacyP-BC Unavailable Unavailable Wiliam Stacy BANK ADVISOR-BC Unavailable Unavailable Wiliam StacyP-BC Unavailable Unavailable Wiliam Stacy BANK ADVISOR-BC Unavailable Unavailable Stacy, F Felicia BANK ADVISOR-BC Unavailable Unavailable Stacy, F Felicia BANK ADVISOR-BC Unavailable Unavailable Stacy, F Felicia BANK ADVISOR-BC Unavailable Unavailable Stacy, F Felicia BANK ADVISOR-BC Unavailable Unavailable Stacy, F Felicia BANK ADVISOR-BC Unavailable Unavailable Stacy, F Felicia BANK ADVISOR-BC Unavailable Unavailable Stacy, F Felicia BANK ADVISOR-BC Unavailable Unavailable Stacy, F Felicia BANK ADVISOR-BC Unavailable Unavailable Stacy, F Felicia BANK ADVISOR-BC Unavailable Unavailable Stacy, F Felicia BANK ADVISOR-BC Unavailable Unavailable Stacy, F Felicia BANK ADVISOR-BC Unavailable Unavailable Stacy, F Felicia BANK ADVISOR-BC Unavailable Unavailable Re-disclosure Warning The records that [...] is protected by Article 27-F of the [facility] Public Health law. If you continue you may have access to information: Regarding HIV / AIDS; Provided by facilities licensed or operated by the [facility] Office of Mental Health; or Provided by the [facility] Office for People With Developmental Disabilities. If such information is present, then the following [facility] mandated warning applies: This information has been [...] law may result in a fine or long term sentence or both. A general authorization for [...] STEPHANIE BROWN FP 03/14/2020 11:01:02 AM EDT [facility] Outpatient Attender: Felicia BELTRE FP 03/01/2020 11: 08:02 AM EDT [facility] Outpatient Attender: STEPHANIE BROWN FP 03/01/2020 10:33:01 AM EDT [facility] Outpatient Attender: STEPHANIE BROWN FP 03/01/2020 08:28:01 AM EDT [facility] Outpatient Attender: STEPHANIE BROWN FP 11/29/2019 09:41:00 AM EDT [facility] Outpatient Attender: STEPHANIE BROWN FP 11/29/2019 09:06:00 AM EDT [facility] Outpatient Attender: STEPHANIE BROWN FP 11/25/2019 03:51:00 PM EDT [facility] Outpatient Attender: Felicia BELTRE FP 08/22/2019 09: 03:02 AM EDT [facility] Outpatient Attender: STEPHANIE BROWN FP 08/22/2019 09:03:00 AM EDT [facility] Outpatient Attender: STEPHANIE BROWN FP 08/17/2019 12:20:00 PM EDT [facility] Outpatient Attender: STEPHANIE BROWN FP 08/17/2019 10:56:04 AM EDT [facility] Outpatient Attender: Felicia BELTRE FP 08/14/2019 05: 02:59 PM EDT [facility] Outpatient Attender: STEPHANIE BROWN FP 08/11/2019 03:10:00 PM EDT [facility] Outpatient Attender: STEPHANIE BROWN FP 08/10/2019 09:52:01 AM EDT [facility] Outpatient Attender: STEPHANIE BROWN FP 08/06/2019 11:31:01 AM EDT [facility] Outpatient Attender: Felicia BELTRE FP 07/21/2019 10: 20:01 PM EST [facility] Outpatient Attender: STEPHANIE BROWN FP 07/20/2019 12:48:01 PM EST [facility] Outpatient Attender: Felicia BELTRE FP 07/18/2019 05: 02:[address] [facility] Outpatient Attender: Felicia FOXBC FP 07/06/2019 12: 59:[address] [facility] Outpatient Attender: STEPHANIE CAMPOSP FP 07/06/2019 08:26:[address] [facility] Outpatient Attender: STEPHANIE CAMPOSP FP 07/02/2019 09:27:[address] [facility] Outpatient Attender: Felicia FOXBC FP 07/02/2019 09: 23:[address] [facility] Outpatient Attender: STEPHANIE CAMPOSP FP 07/02/2019 09:19:[address] [facility] Outpatient Attender: STEPHANIE CAMPOSP FP 06/30/2019 02:20:[address] [facility] Outpatient Attender: Felicia FOXBC FP 06/18/2019 04: 09:[address] [facility] Outpatient Attender: STEPHANIE CAMPOSP FP 06/18/2019 03:34:[address] [facility] Outpatient Attender: STEPHANIE CAMPOSP FP 06/04/2019 12:09:[address] [facility] Outpatient Attender: STEPHANIE CAMPOSP FP 05/24/2019 10:26:[address] [facility] Outpatient Attender: Felicia BELTRE FP 05/24/2019 10: 25:[address] [facility] Outpatient Attender: STEPHANIE BROWN FP 05/24/2019 10:17:[address] [facility] Outpatient Attender: STEPHANIE BROWN FP 05/24/2019 10:16:[address] [facility] Outpatient Attender: STEPHANIE CAMPOSP FP 05/24/2019 08:56:[address] [facility] Outpatient Attender: STEPHANIE BROWN FP 05/22/2019 09:32:[address] [facility] Outpatient Attender: Felicia FOXBC FP 05/22/2019 09: 31:[address] [facility] Outpatient Attender: STEPHANIE BROWN FP 05/21/2019 12:55:[address] [facility] Outpatient Attender: STEPHANIE BROWN FP 05/17/2019 02:05:[address] [facility] Outpatient Attender: Felicia FOXBC FP 05/13/2019 12: 06:[address] [facility] Outpatient Attender: STEPHANIE Stacy BANK ADVISOR FP 05/10/2019 02:16:[address] [facility] Outpatient Attender: STEPHANIE Stacy BANK ADVISOR FP 04/08/2019 04:34:[address] [facility] Insurance Providers Payer name Policy type / Coverage type Policy ID Covered democrat ID Covered democrat's relationship to law Policy Law Plan Information [employer]AN MCDO [id number] SP [id number] [facility] [id number] SP [id number] EMEDNY [id number] SP [id number] Managed Care - [facility] Community Plan P [id number] S [id number] Medicaid S [id number] S [id number] MEDICAID [id number] SP [id number] Managed Care - [facility] Community Plan P [id number] S [id number] Managed Care - Community Plan [facility] P [id number] S [id number] Medicaid S [id number] S [id number] Managed Care - Community Plan [facility] P [id number] S [id number] Medicaid S [id number] S [id number] [facility] Medigap Part B [id number] Self [id number] [place] [id number] Self [id number] [facility](MCA[facility]) O [id number] S [id number] [employer] COMMUNITY PLAN MCDO [id number] SP [id number] [employer] COMMUNITY PLAN MCDO [id number] SP [id number] [place] [id number] Self [id number] [facility] Medigap Part B [id number] Self [id number] Managed Care - Community Plan [facility] P [id number] S [id number] [employer] COMMUNITY PLAN XIX [id number] 18 [id number] [place] [id number] Self [id number] [place] [id number] Self [id number] Managed Care - Community Plan [facility] P [id number] S [id number] Medicaid S [id number] S [id number] Self Pay P UNAVAILABLE S UNAVAILA BLE [facility] Health Maintenance Organization (HMO) [id number] Self [id number] [employer] COMMUNITY PLAN MCDHMO [id number] SP [id number] MEDICAID [id number] SP [id number] SELF PAY O [id number] S [id number] D [facility] P [id number] S [id number] SELF PAY UNAVAILABLE SP UNAVAILA BLE Problems, Conditions, and Diagnoses Code Display Name Description Problem Type Effective Dates Data Source(s) 268.9 vitamin D deficiency vitamin D deficiency 08/16 10:54:19 AM EDT [facility] R73.03 Prediabetes Prediabetes 08/17/2019 10:54:19 AM EDT [facility] V65.8 Person consulting for explanation of exa mination or test findings Person consulting for explanation of examination or test findings 08/17/2019 10:54:19 AM EDT [facility] 478.19 Congestion of nasal sinus Congestion of nasal sinus 08/10/2019 09:50:50 AM EDT [facility] [id number] Allergic contact dermatitis, unspecified cause Allergic contact dermatitis, unspecified cause 08/10/2019 09:50:50 AM EDT [facility] V70.0 Health Screening Health Screening 07/01/2019 01 :11:31 PM [facility] 525.10 Teeth extraction Teeth extraction 05/24/2019 10 :24:27 AM [facility] [id number] Dyspnea, unspecified Dyspnea, unspecified 05/22/2019 09:30:16 PM [facility] Results ID Date Data Source [id number] 03/01/2020 10:29:56 AM EDT [facility] Current Problems: vitamin D deficiency ( ICD-268.9) (HAU65-U46.9)Prediabetes (TMT98-K49.03)Person consulting for explanation of examination or test findings (ICD-V65.8) (UIZ26-K01.2)Congestion of nasal sinus (ICD-478.19) (ICD10- R09.81)Allergic contact dermatitis, unspecified cause (IBM49-E69.9)Health Screening (ICD-V70.0) (TUM51-N67.9)Teeth extraction (ICD-525.10) (ICD10- K08.499)Dyspnea, unspecified (WNW23-D58.00)PANIC DISORDER (ICD-300.01) (ICD10- F41.0)SPECIFIC LEARNING DISORDER, W/ MATH IMPAIRMENT, W/ CALCULATION, MILD (ICD- 315.1) (BOQ66-H66.2)DENTAL CARIES EXTENDING INTO PULP (ICD-521.03) (ICD10-K 02.63)RELATIONSHIP DISTRESS WITH SPOUSE OR INTIMATE PARTNER (ICD-V61.8) (ICD10- Z63.0)PTSD (ICD-309.81) (SDX60-W68.10)Acute upper respiratory infection, unspecified (KCX38-U10.9)BMI 45.0-49.9 (ICD-V85.42) (DLR86-N88.42)MORBID OBESITY (ICD-278.01) (DNO74-O75.01)Acute frontal sinusitis, unspecified (ICD10- J01.10)Pleural effusion (ICD-511.9) (VPF47-U70)Crohn's disease of small intestine with other complication (DPO44-N42.018)Other chest pain (ICD10- R07.89)Generalized anxiety disorder (ICD-300.02) (GGW63-D03.1)Other mixed anxiety disorders (AFV60-K23.3)Chronic low back pain (ICD-724.2) (RWP09-Y99.5)Encounter for general adult medical examination with abnormal findings (ICD-V70.0) (CPV23-E99.01)Current Medications: VITAMIN D (ERGOCALCIFEROL) 56339 UNIT ORAL CAPSULE (ERGOCALCIFEROL) 1 po q [...] # 31 (Performed by Peg Riley DDS) Chart Notes:danika (Mar 01 2020 11:07AM): [...] (11/09/2018 11:09 AM): - Tooth 15 Note: czech the fillingBaPattie clark by yakov (05/24/2019 9:16 [...] tooth is bumpy. Dr. Loco wants to czech the filling. If not Dr. Loco plans on replacing the existing fillingDuranPattie clark by yakov (05/24/2019 9:16 AM): - Tooth 32 Dentition: changed from Permanent to Primary- Tooth 4 Watch: Inga thompson Jackie by patricio (12/09/2018 2:40 PM): Assessment & Plan Medications:VITAMIN D (ERGOCALCIFEROL) 17736 UNIT ORAL CAPSULEFLONASE ALLERGY RELIEF 50 MCG/ACT NASAL SUSPENSIONBETAMETHASONE DIPROPIONATE 0.05 % EXTERNAL CREAMPREDNISONE 20 MG ORAL TABLETCYMBALTA 30 MG ORAL CAPSULE DELAYED RELEASE PARTICLESPROAIR HFA 108 (90 BASE) MCG/ACT INHALATION AEROSOL SOLUTIONPRENATAL COMPLETE TABLETAllergies:No Known Allergies (updated 08/10/2019) Name Value Range Interpretation Code Description Data Cony rce(s) Supporting Document(s) ID Date Data Source [id number] 08/17/2019 08:55:49 AM EDT [facility] Initial Intake Information from: patient Smoking, [...] AMPatient History Medical History:AsthmaDepress ionMigrainesAnxietySurgical History: section q7Vvwodcj removedFamily History:Father ( Throat Cancer)Sister ( PTSD)Maternal grandfather (Cancer, altheimzers)Social/Personal History: Chief ComplaintlabsHistory of Present Illness (HPI)Telemedicine visit with patient's location at their home and provider's location at [facility]. Additional person(s)participating in the visit: Scott BROWN, [...] during this visit, including review of any bhkd-ihd-vjjypyx medications, herbal therapies, and/or supplements.Allergy ReviewAllergy List [...] health is? FairAssessment & Plan Problems:Added: Prediabetes (LGK71-M72.03) Assessment: Instructions: Recent lab results indicates prediabetes. Please start lifestyle changes to include healthy diet and physical activities.Please try to limit sugars and carbohydrates in your diet.Person consulting for explanation of examination or test findings (ICD-V65.8) (ICD10- Z71.2) Assessment: Instructions: We have reviewed your lab results with you today.vitamin D deficiency (ICD-268.9) (VEO11-U97.9) Assessment: Instructions: vitamin D medication sent to pharmacy for you today.Person consulting for explanation of examination or test findings (ICD-V65.8) (ICD10- Z71.2) Assessment: Lab rsults unremarkable except for HGA1c of 5.7 indicating prediabetes and vittamin D deficiency. Lifestyle changes discussed.Assessed:Health Screening (ICD-V70.0) (RHT29-J17.9) Assessment: Instructions: Labs reviewed with you today. [...] collaboration with patient and/or familyMedications:VITAMIN D (ERGOCALCIFEROL) 19226 UNIT ORAL CAPSULEFLONASE ALLERGY RELIEF 50 MCG/ACT NASAL SUSPENSIONBETAMETHASONE DIPROPIONATE 0.05 % EXTERNAL CREAMPREDNISONE 20 MG ORAL TABLETCYMBALTA 30 MG ORAL CAPSULE DELAYED RELEASE PARTICLESPROAIR HFA 108 (90 BASE) MCG/ACT INHALATION AEROSOL SOLUTIONPRENATAL COMPLETE TABLETMedication Changes:New Prescription:VITAMIN D (ERGOCALCIFEROL) 65019 UNIT ORAL CAPSULE-1 po q wk for 12 wks Qty: 12[Capsule] Refills: 0 Method: ElectronicAllergies:No Known Allergies (updated 08/10/2019) Orders:COMP METABOLIC PANEL [CPT-56334] CBC W/DIFF [CPT-83791] HgBA1c [CPT-18899] Vitamin D 250H Unspecified [CPT-50494] L IPID PANEL [CPT-48342] Office Visit - Established, Level 3 [CPT-34184VM] Follow- Up Return to clinic: 3 months for follow up Additional Follow-Up: one week prior to next visit for blood work. Medications:VITAMIN D (ERGOCALCIFEROL) 91174 UNIT ORAL CAPSULE (ERGOCALCIFEROL) 1 po q wk for 12 wks #12[Capsule] x 0 Route:ORAL Entered and Authorized by: Georgette BROWN Method used: Electronically to [id number]* (retail) [address] [place] [address] Ph: [phone] Note to Pharmacy: Route: ORAL; Indications: VITAMIN D DEFICIENCY RxID: [id number] signed by Georgette BROWN on 08/22/2019 at 9:02 AM Name Value Range Interpretation Code Description Data Cony rce(s) Supporting Document(s) ID Date Data Source [id number] 08/10/2019 09:16:00 AM EDT [facility] Name Value Range Interpretation Code Description Data Cony rce(s) Supporting Document(s) HCT 43.3 % 36.0-47.0 N [facility] HGB 13.8 g/dL 12.0-15.5 N [facility] MCH 31.9 G/DL pg 32.0-36.5 L [facility] MCHC 28.0 PG % 27.0-33.0 N [facility] PLATELETS 262 10 10*3/mm3 150-450 N [facility] RBC 4.92 10 10*6/mm3 4.00-5.40 N [facility] RDW 13.5 % 11.5-14.5 N [facility] WBC TOTAL 7.7 4.0-10.0 N [facility] ID Date Data Source [id number] 08/10/2019 09:16:00 AM EDT [facility] Name Value Range Interpretation Code Description Data Cony rce(s) Supporting Document(s) BG FASTING 94 mg/dL 70-100 N [facility] T4, FREE 0.92 ng/dL 0.76-1.46 N [facility] TSH 1.860 microintl units/mL 0.358-3.740 N [facility] VIT D25 TOT 19.1 ng/mL 30.0-100.0 L [facility] ID Date Data Source [id number] 08/10/2019 09:16:00 AM EDT [facility] Name Value Range Interpretation Code Description Data Cony rce(s) Supporting Document(s) HGBA1C 5.7 % N [facility] ID Date Data Source [id number] 08/10/2019 09:06:28 AM EDT [facility] Measurements & CalculationsHeight: 65 inches (5 [...] 9:12 AMPatient History Medical History:AsthmaDepressionMigrainesAnxietySurgical History: section p8Ythezuq removedFamily History:Father ( Throat Cancer)Sister ( PTSD)Maternal [...] during this visit, including review of any pbku-sdw-zoxvcbb medications, herbal therapies, and/or supplements.Allergy ReviewAllergy List [...] Plan Problems:Added: Congestion of nasal sinus (ICD-478.19) (SWW15-C30.81) Assessment: Instructions: We have sent a prescription to your pharmacy today. Please use medication as prescribed. Please report any major side effects. Please try to maintain adequate fluid intake. Please try to maintain adequate rest and good nutrition.If symptoms worsen please return to clinnic or the ER.Allergic contact dermatitis, unspecified cause (MOY50-J86.9) Assessment: Instructions: We have sent a prescription [...] Orders:Adult - Ofc Vst, EST, Level III [CPT-42814] Follow-Up Return to clinic: as scheduled and as needed. Clinical Visit Summary CompletedMedications:FLONASE ALLERGY RELIEF 50 MCG/ACT NASAL SUSPENSION (FLUTICASONE PROPIONATE) one spray to each nares twice daily #1[Container] x 0 Route:NASAL Entered and Authorized by: Georgette BROWN Method used: Electronically to [facility]* (retail) [address] [place] [address] Fax: Note to Pharmacy: Route: NASAL; Indications: CONGESTION OF NASAL SINUS RxID: [id number] DIPROPIONATE 0.05 % EXTERNAL CREA M (BETAMETHASONE DIPROPIONATE) apply to affected area twice daily as needed #1[Tube] x 0 Route:EXTERNAL Entered and Authorized by: Georgette BROWN Method used: Electronically to [facility]* (retail) [address] [place] [address] [place] [address] Note to Pharmacy: Route: EXTERNAL; Indications: ALLERGIC CONTACT DERMATITIS, UNSPECIFIED CAUSE RxID: [id number] 20 MG ORAL TABLET (PREDNISONE) take one tablet by mouth daily x 5 days #5[Tablet] x 0 Route:ORAL Entered and Authorized by: Georgette BROWN Method used: Electronically to [facility]* (retail) [address] [place] [address] [place] [address] Note to Pharmacy: Route: ORAL; Indications: ALLERGIC CONTACT DERMATITIS, UNSPECIFIED CAUSE RxID: [id number] signed by Georgette BROWN on 08/14/2019 at 5:02 PM Name Value Range Interpretation Code Description Data Cony rce(s) Supporting Document(s) ID Date Data Source [id number] 07/06/2019 08:59:28 AM [facility] Current Problems: Health Screening (ICD- V70.0) (YPK76-V53.9)Teeth extraction (ICD-525.10) (ADW25-G61.499)Dyspnea, unspecified (OSJ50-G61.00)PANIC DISORDER (ICD-300.01) (IRR52-B15.0)SPECIFIC LEARNING DISORDER, W/ MATH IMPAIRMENT, W/ CALCULATION, MILD (ICD-315.1) (QRN40-A72.2)DENTAL CARIES EXTENDING INTO PULP (ICD-521.03) (GEP62-R98.63)RELATIONSHIP DISTRESS WITH SPOUSE OR INTIMATE PARTNER (ICD-V61.8) (DIP09-U19.0)PTSD (ICD-309.81) (OXO53-X82.10)Acute upper respiratory infection, unspecified (CWG71-R84.9)BMI 45.0-49.9 (ICD-V85.42) (JYF02-X50.42)MORBID OBESITY (ICD-278.01) (INS77-M32.01)Acute frontal sinusitis, unspecified (DVH59-R47.10)Pleural effusion (ICD-511.9) (BSF72-F70)Crohn's disease of small intestine with other complication (ICE33-B34.018)Other chest pain (GBC35-F00.89)Generalized anxiety disorder (ICD-300.02) (WMR22-D77.1)Other mixed anxiety disorders (GIG82-V70.3)Chronic low back pain (ICD-724.2) (ICD10- M54.5)Encounter for general adult medical examination with abnormal findings (ICD-V70.0) (SXA23-S38.01)Problem list reviewed during this update.Current Medications: CYMBALTA [...] (11/09/2018 11:09 AM): - Tooth 15 Note: czech the fillingBakerPattie by yakov (05/24/2019 9:16 AM): [...] tooth is bumpy. Dr. Loco wants to czech the filling. If not Dr. Loco plans [...] rce(s) Supporting Document(s) ID Date Data Source [id number] 07/01/2019 11:39:24 AM [facility] Measurements & CalculationsHeight: 65 inches (5 ft. [...] during this visit, including review of any hrpw-nye-ojbedne medications, herbal therapies, and/or supplements.Allergy ReviewAllergy List [...] , healthy diet and physical activities.Dyspnea, unspecified (GPN89-T86.00) Assessment: Improved per patient with use of [...] Known Allergies (updated 11/09/2018) Orders:COMP METABOLIC PANEL [CPT-13616] CBC W/DIFF [CPT-09294] HgBA1c [CPT-15185] LIPID PANEL [CPT- 16102] TSH [CPT-78425] T-4 free [CPT-47484] Vitamin D 250H Unspecified [CPT- 84292] URINALYSIS [CPT-50245] Adult - Ofc Vst, EST, Level III [CPT-76457] Follow-Up Return to clinic: 4 weeks for follow up Clinical Visit Summary Completed][Immunization Management] Name Value Range Interpretation Code Description Data Cony rce(s) Supporting Document(s) ID Date Data Source [id number] 05/24/2019 09:01:43 AM [facility] Patient History Medical History:AsthmaDe pressionMigrainesAnxietyFamily History:Father ( Throat Cancer)Sister ( PTSD)Maternal grandfather (Cancer, altheimzers)Social/Personal History: Smoking Status: former smokerCurrent Problems: Teeth extraction (ICD-525.10) (VCH98-M16.499)Dyspnea, unspecified (NSN03-S44.00)PANIC DISORDER (ICD-300.01) (KOD87-L13.0)SPECIFIC LEARNING DISORDER, W/ MATH IMPAIRMENT, W/ CALCULATION, MILD (ICD-315.1) (ICD10- F81.2)DENTAL CARIES EXTENDING INTO PULP (ICD-521.03) (PSD47-R81.63)RELATIONSHIP DISTRESS WITH SPOUSE OR INTIMATE PARTNER (ICD-V61.8) (HEJ22-M62.0)PTSD (ICD- 309.81) (AVY00-G54.10)Acute upper respiratory infection, unspecified (ICD10- J06.9)BMI 45.0-49.9 (ICD-V85.42) (VQZ42-N29.42)MORBID OBESITY (ICD-278.01) (FUJ14-Z08.01)Acute frontal sinusitis, unspecified (PKR01-Z63.10)Pleural effusion (ICD-511.9) (WIQ45-Q03)Crohn's disease of small intestine with other complication (WBT06-Y75.018)Other chest pain (LKV52-M83.89)Generalized anxiety disorder (ICD-300.02) (TFN29-C79.1)Other mixed anxiety disorders (ICD10- F41.3)Chronic low back pain (ICD-724.2) (YXG47-S20.5)Encounter for general adult medical examination with abnormal findings (ICD-V70.0) (MCQ85-U72.01)Current Medications: CYMBALTA 30 MG ORAL CAPSULE DELAYED [...] none. Reviewed Xrays. Exam: no caries detected, czech of #2B and #15O needed possible replacement of #2B filling needed.. OCS: WNL, IO/ EO completed, No significant hard findings upon clinical exam Pt was cooperative.OHI givenReferral: N/ANV:recallPattie Maldonado by david (05/24/2019 10:24 AM): ; yakov (May 24 2019 9:43AM): [facility]cc-My two upper teeth that i got fillings [...] (11/09/2018 11:09 AM): - Tooth 15 Note: czech the fillingPattie Maldonado by yakov (05/24/2019 9:16 [...] tooth is bumpy. Dr. Loco wants to czech the filling. If not Dr. Loco plans on replacing the existing fillingPattie Maldonado by yakov (05/24/2019 9:16 AM): - Tooth 32 Dentition: changed from Permanent to Primary- Tooth 4 Watch: Inga thompson Jackie by patricio (12/09/2018 2:40 PM): Assessment & Plan Problems:Added: Teeth extraction (ICD-525.10) (LPB84-V22.499)Medications:CYMBALTA 30 MG ORAL CAPSULE DELAYED RELEASE PARTICLESPROAIR HFA 108 (90 BASE) MCG/ACT INHALATION AEROSOL SOLUTIONPRENATAL COMPLETE TABLETAllergies:No Known Allergies (updated 11/09/2018) Orders:Oral Surgery Referral [CPT-00429] Name Value Range Interpretation Code Description Data Cony rce(s) Supporting Document(s) ID Date Data Source [id number] 05/21/2019 04:57:37 PM [facility] Measurements & CalculationsHeight: 65 inches (5 ft. [...] 5:01 PMPatient History Medical History:AsthmaDepressionMigrainesAnxietySurgical History: section g0Nmsnbjq removedFamily History:Father ( Throat Cancer)Sister ( PTSD)Maternal [...] during this visit, including review of any hqwr-ekg-dyxrzin medications, herbal therapies, and/or supplements.Allergy ReviewAllergy List [...] is? GoodAssessment & Plan Problems:Added: Dyspnea, unspecified (UPC89-P17.00) Assessment: Instructions: Symptoms most likely related to anxiety disorder.Patient will be started on Cymbalta.Instructed patient to go to ER if symptoms worsen.Assessed:PANIC DISORDER (ICD-300.01) (JKU06-V62.0) Assessment: Instructions: Refer to telepsychiatry for symptom managementGeneralized anxiety disorder (ICD-300.02) (MEM12-Y57.1) Assessment: Instructions: Start trial of Cymbalta 30 [...] LIQUIDAllergies:No Known Allergies (updated 11/09/2018) Orders:Telepsychiatry Consult [CPT-01702] Adult - Ofc Vst, EST, Level III [CPT-69255] Follow-Up Return to clinic: in 6 weeks for follow upAdditional Follow-Up: anxietyMedications:CYMBALTA 30 MG ORAL CAPSULE DELAYED RELEASE PARTICLES (DULOXETINE HCL) Take one capsule po QD #30[Capsule] x 1 Route:ORAL Entered and Authorized by: Felicia BROWN Method used: Electronically to [id number]* ([facility]) [address] [place] [address] [address] [place] [place] [id number] Note to Pharmacy: Route: ORAL; RxID: [id number] 108 (90 BASE) MCG/ACT INHALATION AEROSOL SOLUTION (ALBUTEROL SULFATE) 2 puffs inhaled Q4H as needed #1[Inhaler] x 1 Entered and Authorized by: Felicia BROWN Method used: Electronically to [id number]* (retail) [address] [place] [address] [place] [address] Fax: Note to Pharmacy: Route: INH; RxID: [id number] signed by Felicia BROWN on 05/22/2019 at 9:30 PM Name Value Range Interpretation Code Description Data Cony rce(s) Supporting Document(s) Procedure
--- NOTE | 2020-05-31 13:16 | REPVR ---
PROCEDURE INFORMATION: Exam: CT Head Without Contrast Exam date and time: 05/31/2020 12:43 PM Age: 25 years old Clinical indication: Injury or trauma; Fall; Blunt trauma (contusions or hematomas) TECHNIQUE: Imaging protocol: Computed tomography of the head without contrast. Radiation optimization: All CT scans at this facility use at least one of these dose optimization techniques: automated exposure control; mA and/or kV adjustment per patient size (includes targeted exams where dose is matched to clinical indication); or iterative reconstruction. COMPARISON: No relevant prior studies available. FINDINGS: Brain: No hemorrhage. Unremarkable white matter for the patient's age. No mass effect. No evolving territorial infarct. Cerebral ventricles: No ventriculomegaly. Bones/joints: Unremarkable. No acute fracture. Paranasal sinuses: Visualized sinuses are unremarkable. No fluid levels. Mastoid air cells: Visualized mastoid air cells are well aerated. Soft tissues: Unremarkable. IMPRESSION: No acute intracranial abnormality seen. Electronically signed by: Angeline Chaparro On 05/31/2020 13:16:58 PM
--- NOTE | 2020-05-31 13:22 | REPVR ---
PROCEDURE INFORMATION: Exam: CT Cervical Spine Without Contrast Exam date and time: 05/31/2020 12:43 PM Age: 25 years old Clinical indication: Neck pain; Additional info: Fall TECHNIQUE: Imaging protocol: Computed tomography images of the cervical spine without contrast. Radiation optimization: All CT scans at this facility use at least one of these dose optimization techniques: automated exposure control; mA and/or kV adjustment per patient size (includes targeted exams where dose is matched to clinical indication); or iterative reconstruction. COMPARISON: No relevant prior studies available. FINDINGS: Bones/joints: Straightening of the normal cervical lordosis may be positional or due to muscle spasm. No acute fracture seen. Discs/Spinal canal/Neural foramina: No significant disc protrusion. No severe spinal canal stenosis. No significant neural foraminal narrowing. Lungs: Lung apices are normal. Soft tissues: Unremarkable. IMPRESSION: No cervical spine fracture seen. Electronically signed by: Angeline Chaparro On 05/31/2020 13:22:34 PM
[2020-05-31 14:09] VITALS: BP 126/74
== END 2020-05-31 14:05 | disposition home or self-care (01) ==
LOC: M ED 11:49
DX: S00.03XA Contusion of scalp, initial encounter (principal); W10.8XXA Fall (on) (from) other stairs and steps, initial encounter; Y92.098 Other place in other non-institutional residence as the place of occurrence of the external cause; Y93.89 Activity, other specified; Y99.8 Other external cause status; Z87.891 Personal history of nicotine dependence; Z79.899 Other long term (current) drug therapy

== ENCOUNTER → 2020-07-31 | Outpatient (CLI) | payer OTHER ==
[~2020-07-31] MED LIST changes: +SERT50TA29
== END ==
LOC: M LABSMTC 12:33
PROVIDERS: ATTEND Family Medicine
DX: Z20.822 Contact with and (suspected) exposure to COVID-19 (principal)

== ENCOUNTER → 2020-11-30 | Outpatient (CLI) | payer OTHER ==
[2020-11-30 14:37] LABS: ALBUMIN 3.5 GM/DL (3.2-5.2); ALT/SGPT 15 U/L (12-78); BILIRUBIN,TOTAL 0.2 MG/DL (0.2-1.0); BLOOD UREA NITROGEN 12 MG/DL (7-18); CALCIUM LEVEL 8.9 MG/DL (8.5-10.1); CARBON DIOXIDE LEVEL 29 MEQ/L (21-32); CHLORIDE LEVEL 106 MEQ/L (98-107); CHOLESTEROL LEVEL 161 MG/DL (<200); CHOLESTEROL RISK RATIO 3.744 (<5); CREATININE FOR GFR 0.75 MG/DL (0.55-1.30); FREE T4 0.79 NG/DL (0.76-1.46); GLOMERULAR FILTRATION RATE > 60.0 (>60); GLUCOSE, FASTING 89 MG/DL (70-100); HDL CHOLESTEROL 43 MG/DL (>40); LDL CHOLESTEROL 77 MG/DL (<100); NON-HDL-C 118 MG/DL; POTASSIUM SERUM 4.4 MEQ/L (3.5-5.1); SODIUM LEVEL 139 MEQ/L (136-145); TOTAL PROTEIN 7.2 GM/DL (6.4-8.2); TRIGLYCERIDES LEVEL 206 MG/DL (<150)
== END ==
LOC: M LAB 13:21
PROVIDERS: ATTEND Student in an Organized Health Care Education/Training Program
DX: E66.9 Obesity, unspecified (principal); Z68.43 Body mass index [BMI] 50.0-59.9, adult

== ENCOUNTER → 2021-01-24 | Outpatient (REF) | payer OTHER | LOC: M SFHCWAGY 17:44 | PROVIDERS: ATTEND Obstetrics & Gynecology | DX: Z12.4 Encounter for screening for malignant neoplasm of cervix (principal) ==

== ENCOUNTER → 2021-04-02 | Outpatient (CLI) | payer OTHER ==
[2021-04-02 12:25] LABS: BASO % 0.2 % (0.0-1.0); EOS # 0.1 10^3/uL (0.0-0.5); EOS % 0.9 % (0.0-3.0); HEMATOCRIT 37.6 % (36.0-47.0); HEMOGLOBIN 11.8 g/dl (12.0-15.5); LYMPH # 2.6 10^3/uL (1.5-5.0); LYMPH % 27.4 % (24.0-44.0); MEAN CORPUSCULAR HEMOGLOBIN 26.6 pg (27.0-33.0); MEAN CORPUSCULAR HGB CONC 31.4 g/dl (32.0-36.5); MEAN CORPUSCULAR VOLUME 84.9 fl (80.0-96.0); MONO # 0.5 10^3/uL (0.0-0.8); MONO % 5.4 % (2.0-8.0); NEUTROPHILS # 6.3 10^3/uL (1.5-8.5); NEUTROPHILS % 65.8 % (36.0-66.0); PLATELET COUNT, AUTOMATED 291 10^3/uL (150-450); RED BLOOD COUNT 4.43 10^6/uL (4.00-5.40); WHITE BLOOD COUNT 9.6 10^3/uL (4.0-10.0)
[2021-04-02 12:50] LABS: PERCENT SATURATION 11.8 % (13.2-45.0)
== END ==
LOC: M LAB 11:49
PROVIDERS: ATTEND Student in an Organized Health Care Education/Training Program
DX: R53.83 Other fatigue (principal)

== ENCOUNTER → 2022-02-06 | Outpatient (CLI) | payer OTHER | LOC: M WUC 15:47 | PROVIDERS: ATTEND Physician Assistant | DX: M79.672 Pain in left foot (principal); M79.671 Pain in right foot ==

== ENCOUNTER → 2022-05-23 | Outpatient (CLI) | payer OTHER | LOC: M WUC 09:50 | PROVIDERS: ATTEND Physician Assistant | DX: M54.50 Low back pain, unspecified (principal) ==

== ENCOUNTER → 2022-05-29 | Outpatient (REF) | payer OTHER ==
[2022-05-29 18:58] LABS: APPEARANCE, URINE MANUAL CLOUDY (CLEAR); BILIRUBIN, URINE MANUAL 1+ (NEGATIVE); BLOOD URINE MANUAL POSITIVE (NEGATIVE); COLOR, URINE MANUAL YELLOW (YELLOW); GLUCOSE, URINE (UA) MANUAL NEGATIVE (NEGATIVE); KETONE, URINE MANUAL NEGATIVE (NEGATIVE); LEUKOCYTE ESTERASE, URINE MAN POSITIVE (NEGATIVE); NITRITE, URINE MANUAL POSITIVE (NEGATIVE); PROTEIN, URINE MANUAL 1+ mg/dL (NEGATIVE); SPECIFIC GRAVITY,URINE MANUAL 1.025 (1.002-1.035); UROBILINOGEN, URINE MANUAL NORMAL (NORMAL)
[2022-05-29 19:17] LABS: BACTERIA, URINE LARGE AMOUNT; HYALINE CAST, URINE NONE SEEN /lpf (0-1); SQUAMOUS EPITHELIAL CELL URINE SMALL AMOUNT /hpf (SMALL AMT); WBC, URINE TNTC /hpf (0-3)
== END ==
LOC: M LAB REF 16:13
PROVIDERS: ATTEND Physician Assistant
DX: N39.0 Urinary tract infection, site not specified (principal)

== ENCOUNTER → 2022-07-08 | Outpatient (CLI) | payer OTHER ==
[~2022-07-08] MED LIST changes: +BUPR300T92; +ETON68IM SC
== END ==
LOC: M LABSMTC 10:18
PROVIDERS: ATTEND Anesthesiology
DX: Z01.812 Encounter for preprocedural laboratory examination (principal); Z11.52 Encounter for screening for COVID-19

== ENCOUNTER 2022-07-12 11:01 | Day surgery (SDC) | payer OTHER ==
[~2022-07-12] VITALS: Ht 165.1 cm; Wt 134.2 kg
[~2022-07-12 11:01] MED LIST changes: +NS 1,000 ML IV ONE
[2022-07-12] MEDS ORDERED: LIDOCAINE 2% 100MG/5ML SDV (FOR ANES.) As Ordered ONE (13:23)
[2022-07-12] MEDS ORDERED: propofoL 200 MG/20 ML VIAL As Ordered ONE ×2 (13:23→13:29)
[2022-07-12 14:10] VITALS: BP 106/63
== END 2022-07-12 14:12 | disposition home or self-care (01) ==
LOC: M OPP 11:01
PROVIDERS: ATTEND Internal Medicine Gastroenterology
DX: K63.89 Other specified diseases of intestine (principal); K64.4 Residual hemorrhoidal skin tags; K64.8 Other hemorrhoids; R93.3 Abnormal findings on diagnostic imaging of other parts of digestive tract; K29.70 Gastritis, unspecified, without bleeding; F32.9 Major depressive disorder, single episode, unspecified; F41.9 Anxiety disorder, unspecified; Z79.3 Long term (current) use of hormonal contraceptives; Z79.899 Other long term (current) drug therapy; Z80.1 Family history of malignant neoplasm of trachea, bronchus and lung

== ENCOUNTER → 2022-08-02 | Outpatient (REF) | payer OTHER, MEDICAID ==
[~2022-08-02] MED LIST changes: -NS 1,000 ML IV ONE
== END ==
LOC: M LAB REF 12:01
PROVIDERS: ATTEND Physician Assistant
DX: J02.9 Acute pharyngitis, unspecified (principal)

== ENCOUNTER → 2023-03-02 | Outpatient (REF) | payer OTHER, MEDICAID | LOC: M LAB REF 18:17 | PROVIDERS: ATTEND Physician Assistant Medical | DX: J02.9 Acute pharyngitis, unspecified (principal) ==

== ENCOUNTER → 2023-09-22 | Outpatient (REF) | payer OTHER ==
[~2023-09-22] MED LIST changes: +BUPR-597; -BUPR300T92
[2023-09-25 14:41] LABS: CHOLESTEROL RISK RATIO 2.76 (<5); HDL CHOLESTEROL 47.3 MG/DL (>40); LDL CHOLESTEROL 67.9 MG/DL (<100); NON-HDL-C 83.7 MG/DL
== END ==
LOC: M LAB REF 14:22
PROVIDERS: ATTEND Physician Assistant
DX: Z13.220 Encounter for screening for lipoid disorders (principal); E66.01 Morbid (severe) obesity due to excess calories; Z68.42 Body mass index [BMI] 45.0-49.9, adult

== ENCOUNTER → 2023-09-22 | Outpatient (CLI) | payer OTHER ==
[2023-09-22 11:02] LABS: BASO % 0.5 % (0.0-1.0); EOS # 0.1 10^3/uL (0.0-0.5); EOS % 0.8 % (0.0-3.0); HEMATOCRIT 41.9 % (36.0-47.0); HEMOGLOBIN 13.8 g/dl (12.0-15.5); LYMPH # 1.8 10^3/uL (1.5-5.0); LYMPH % 23.9 % (24.0-44.0); MEAN CORPUSCULAR HEMOGLOBIN 29.7 pg (27.0-33.0); MEAN CORPUSCULAR HGB CONC 32.9 g/dl (32.0-36.5); MEAN CORPUSCULAR VOLUME 90.3 fl (80.0-96.0); MONO # 0.5 10^3/uL (0.0-0.8); MONO % 6.3 % (2.0-8.0); NEUTROPHILS # 5.2 10^3/uL (1.5-8.5); NEUTROPHILS % 67.8 % (36.0-66.0); PLATELET COUNT, AUTOMATED 267 10^3/uL (150-450); RED BLOOD COUNT 4.64 10^6/uL (4.00-5.40); WHITE BLOOD COUNT 7.7 10^3/uL (4.0-10.0)
[2023-09-22 11:10] LABS: ERYTHROCYTE SEDIMENTATION RATE 27 mm/hr (0-20)
[2023-09-22 11:36] LABS: IRON (FE) 93 UG/DL (50-170); PERCENT SATURATION 29.9 % (13.2-45.0); TOTAL IRON BINDING CAPACITY 311 UG/DL (250-425)
[2023-09-22 11:37] LABS: ALBUMIN 3.3 G/DL (3.2-5.2); ALKALINE PHOSPHATASE 72 U/L (46-116); ALT/SGPT 13 U/L (7.0-40); AST/SGOT 10 U/L (<34); BILIRUBIN,DIRECT 0.2 MG/DL (<0.4); BILIRUBIN,TOTAL 0.5 MG/DL (0.3-1.2); BLOOD UREA NITROGEN 9 MG/DL (9-23); CALCIUM LEVEL 8.7 MG/DL (8.5-10.1); CARBON DIOXIDE LEVEL 28 MMOL/L (20-31); CHLORIDE LEVEL 107 MMOL/L (98-107); CREATININE FOR GFR 0.74 MG/DL (0.55-1.30); GLOMERULAR FILTRATION RATE > 60.0 (>60); GLUCOSE, FASTING 91 MG/DL (60-100); SODIUM LEVEL 140 MMOL/L (136-145); TOTAL PROTEIN 6.6 G/DL (5.7-8.2)
[2023-09-22 11:38] LABS: FERRITIN 34.6 NG/ML (7.3-270.7)
== END ==
LOC: M LAB 09:47
PROVIDERS: ATTEND Internal Medicine Gastroenterology
DX: R19.7 Diarrhea, unspecified (principal)

== ENCOUNTER → 2023-11-06 | Outpatient (REF) | payer OTHER ==
[~2023-11-06] MED LIST changes: +ONDA-282 PO; -ONDA4TAB6 PO
[2023-11-06 16:47] LABS: Trichomonas vaginalis (AMP) NOT DETECTED (NEGATIVE)
[2023-11-06 17:11] LABS: GC DNA AMPLIFICATION NEGATIVE (NEGATIVE)
== END ==
LOC: M SFHCWAGY 15:03
PROVIDERS: ATTEND Nurse Practitioner Family
DX: Z11.3 Encounter for screening for infections with a predominantly sexual mode of transmission (principal)

== ENCOUNTER → 2024-08-24 | Outpatient (REF) | payer OTHER ==
[2024-08-24 14:33] LABS: Trichomonas vaginalis (AMP) NOT DETECTED (NEGATIVE)
[2024-08-24 14:57] LABS: GC DNA AMPLIFICATION NEGATIVE (NEGATIVE)
== END ==
LOC: M SFHCWAGY 12:42
PROVIDERS: ATTEND Obstetrics & Gynecology
DX: N94.89 Other specified conditions associated with female genital organs and menstrual cycle (principal)

== ENCOUNTER → 2024-11-24 | Outpatient (REF) | payer OTHER ==
[~2024-11-24] MED LIST changes: -BUPR-597; +BUPR-766
[2024-11-24 16:39] LABS: Trichomonas vaginalis (AMP) NOT DETECTED (NEGATIVE)
[2024-11-24 17:03] LABS: GC DNA AMPLIFICATION NEGATIVE (NEGATIVE)
== END ==
LOC: M SFHCWAGY 14:59
PROVIDERS: ATTEND Obstetrics & Gynecology
DX: Z11.3 Encounter for screening for infections with a predominantly sexual mode of transmission (principal)